=== PATIENT | male | born 1950 | race Caucasian/White ===

== ENCOUNTER 2018-07-01 09:46 | Day surgery (SDC) | payer MEDICARE ==
[~2018-07-01 09:46] MED LIST: ceFAZolin IN SWFI 2 GM/20 ML SYRINGE IVP ONE
[2018-07-01] MEDS ORDERED: ONDANSETRON 4 MG/2 ML VIAL ONE (10:16)
[2018-07-01] MEDS ORDERED: MIDAZOLAM 2 MG/2 ML VIAL ONE ×2 (10:25→10:53)
[2018-07-01 10:26] LABS: Glucose,Whole Blood 198 mg/dL (75-99)
[2018-07-01] MEDS ORDERED: LACTATED RINGERS 1,000 ML IV ONE (10:31)
[2018-07-01] MEDS ORDERED: MIDAZOLAM 2 MG/2 ML VIAL IVP ONE (10:35)
[2018-07-01] MEDS ORDERED: LIDOCAINE 1% INJ 10MG/ML (20 ML MDV) ONE ×2 (10:35→10:53)
[2018-07-01] MEDS ORDERED: PROPOFOL 10 MG/ML 20 ML VIAL IV ONE (10:53)
[2018-07-01] MEDS ORDERED: ROPIVACAINE 5 MG/ML 30 ML VIAL ONE (10:53)
[2018-07-01] MEDS ORDERED: LIDOCAINE 2%-EPI 1:100,000 20 ML VIAL ONE (10:53)
[2018-07-01] MEDS ORDERED: ceFAZolin 1,000 MG in SODIUM CHLORIDE 0.9% 1,000 ML IRRIGATION ONE (11:17)
--- NOTE | 2018-07-01 11:28 | P.OP ---
Date of Procedure: 07/01/18 Preoperative Diagnosis: Foreign body right hand Postoperative Diagnosis: Foreign body right hand Procedure(s) Performed: Removal foreign body right hand Anesthesia: regional Surgeon: Terrell Sampson Medical Science Liaison #1: Mena Cleveland Estimated Blood Loss (ml): 1 Pathology: none sent Condition: stable Disposition: PACU Indications for Procedure: This is a 68-year-old gentleman that accidentally shot a nail from a nail gun into his right hand over the weekend. [place], but decided to come back to [facility] for treatment. I evaluated the patient and the office and x-rays demonstrated a nail within the wrist of the right hand. After discussing the surgical and nonsurgical treatment options with him at length, I recommended removal of the foreign body. Informed consent was obtained. Operative Findings: The operative findings are consistent with a foreign body (nail), and the right wrist. Description of Procedure: The patient was seen and evaluated in the preoperative area, the operative site was marked with a skin marker. A regional block was then performed by the anesthesia department. Patient was then brought to the operating room and given a sedate him anesthetic by anesthesia. Tourniquet was placed on the right upper arm the right upper extremities prepped and draped in usual sterile fashion. Pierz timeout was then performed, which confirmed the patient's name, surgical site, ALLERGIES, and consent. The right upper extremity was then exsanguinated and the tourniquet inflated to 250 mmHg using fluoroscopy, the head of the nail was localized in both AP and lateral planes. An incision was then made on the volar aspect of the right wrist, similar to a carpal tunnel incision. The tissues were carefully dissected down and the head of the nail was encountered without difficulty. A hemostat was then used to lightly pry out the nail without incident. Fluoroscopy was used to confirm removal of the foreign body. The area was then irrigated and closed with 4-0 nylon. A sterile dressing was then applied. The patient was then transported to recovery room in stable condition. The inventory control assistant LISA Olvera was required due the complexity of the surgery and the need for skilled rn surgical.
[2018-07-01 11:38] VITALS: TEMP 96.8
--- NOTE | 2018-07-01 11:41 | P.ONQ ---
Anesthesiology Proc Note - PNB - Peripheral Nerve Block Performed Right Axillary Single Time Out Performed: Yes (1012) Procedure Start Time: 10:12 Procedure Stop Time: 10:20 Indication: Acute Post-Operative Pain, Dx/Pain Location (Right Hand pain), Requested by physician Sedation Type: Sedate with meaningful contact maintained Preparation: Sterile Prep Position: Supine Catheter: None Needle Types: On-Q Needle Size: 50mm (2") Needle Gauge: 21 Technique: Ultrasound Injectate: Other (see comment) (15ml 0.5% Ropivacaine + 15ml 2% Lidocaine with 1 :200,000 epi) Blood Aspirated: No Pain Paresthesia on Injection Noted: No Resistance on Injection: Normal Events: Uneventful and Well Tolerated
[2018-07-01 12:20] VITALS: RESP 18
[2018-07-01 12:43] VITALS: BP 125/78; PULSE 68
--- NOTE | 2018-07-01 12:55 | FL ---
Fluoroscopy HISTORY: Foreign body removal 2 seconds fluoroscopy time supplied to the referring clinician. 3 intraoperative C-arm images docume nt the procedure. See dictated report from orthopedic surgery.
--- NOTE | 2018-07-01 13:07 | XR ---
Limited right hand HISTORY: Foreign body removal 3 intraoperative C-arm images document the procedure.
== END 2018-07-01 12:58 | disposition home or self-care (01) ==
LOC: OR 09:46
PROVIDERS: ATTEND Orthopaedic Surgery
DX: S60.551A Superficial foreign body of right hand, initial encounter (principal); W45.0XXA Nail entering through skin, initial encounter; W29.8XXA Contact with other powered hand tools and household machinery, initial encounter; E78.5 Hyperlipidemia, unspecified; E11.22 Type 2 diabetes mellitus with diabetic chronic kidney disease; I12.9 Hypertensive chronic kidney disease with stage 1 through stage 4 chronic kidney disease, or unspecified chronic kidney disease; N18.2 Chronic kidney disease, stage 2 (mild); Z79.84 Long term (current) use of oral hypoglycemic drugs; Z87.891 Personal history of nicotine dependence; H40.9 Unspecified glaucoma; F32.9 Major depressive disorder, single episode, unspecified; G47.33 Obstructive sleep apnea (adult) (pediatric); Z79.82 Long term (current) use of aspirin; Z79.899 Other long term (current) drug therapy; Z88.6 Allergy status to analgesic agent; Z88.8 Allergy status to other drugs, medicaments and biological substances
CPT/HCPCS: 73120; 10120; J2250; J0690 ×2; J2001; J2795; J2704

== ENCOUNTER → 2018-12-04 | Outpatient (CLI) | payer MEDICARE ==
--- NOTE | 2018-12-04 12:22 | MR ---
EXAMINATION TYPE: MR pituitary wo/w con DATE OF EXAM: 12/04/2018 COMPARISON: None HISTORY: Abnormal finding of blood chemistry TECHNIQUE: Multiplanar, multisequence images of the sella turcica is performed without and with IV contrast, uti lizing 12.5 mL intravenous Gadavist . FINDINGS: Pituitary stalk is slightly deviated towards the left could be normal variant. The pituitar y shows hypointensity to the left of midline following contrast administration, 6 mm focus of decreas ed contrast enhancement thought to be asymmetric. There is no pituitary enlargement. There are normal vascular flow voids. No evident hydrocephalus. Corpus callosum is unremarkable. Cervical medullary junction is normal. IMPRESSION: Findings consistent with pituitary microadenoma.
== END | disposition home or self-care (01) ==
LOC: RADMRIMAIN 08:33
PROVIDERS: ATTEND Internal Medicine Endocrinology, Diabetes & Metabolism
DX: R79.9 Abnormal finding of blood chemistry, unspecified (principal)
CPT/HCPCS: 82565; 70553; 36415; A9585

== ENCOUNTER → 2019-04-23 | Outpatient (CLI) | payer MEDICARE ==
[2019-04-23 09:57] LABS: HCT 46.7 % (39.0-53.0); MCHC 32.1 g/dL (31.0-37.0); MCV 90.3 fL (80.0-100.0); Mean Platelet Volume 7.3; Platelet Count 246 k/uL (150-450); RBC 5.17 m/uL (4.30-5.90); RDW 13.1 % (11.5-15.5); WBC 6.2 k/uL (3.8-10.6)
[2019-04-23 16:28] LABS: Albumin 4.3 g/dL (3.80-4.90); Albumin/Globulin Ratio 2.39 (1.60-3.17); Anion Gap 7.6 mmol/L (4.00-12.00); Calcium 9.5 mg/dL (8.7-10.3); Carbon Dioxide 26.4 mmol/L (21.6-31.8); Globulin 1.8 g/dL (1.6-3.3); Potassium 5.6 mmol/L (3.5-5.5); Total Bilirubin 0.6 mg/dL (0.3-1.2); Total Protein 6.1 g/dL (6.2-8.2)
== END | disposition home or self-care (01) ==
LOC: LABWHC1 09:23
PROVIDERS: ATTEND Internal Medicine Interventional Cardiology
DX: R94.39 Abnormal result of other cardiovascular function study (principal)
CPT/HCPCS: 36415; 80053; 85027

== ENCOUNTER → 2019-04-27 | Day surgery (SDC) | payer MEDICARE ==
[2019-04-23 14:04] VITALS: BMI 33.3
[~2019-04-27] MED LIST changes: +ACETAMINOPHEN TAB 500 MG TAB PO PRN; +ALPRAZolam 0.25 MG TAB PO PRN; +ALPRAZolam 0.5 MG TAB PO PRN; +ASPIRIN 325 MG TAB PO STA; +ASPIRIN 81 MG PO SCH; +ATORVASTATIN 80 MG TAB PO SCH; +ATORVASTATIN 80 MG TAB PO STA; +GLIMEPIRIDE 4 MG TAB PO SCH; +HEPARIN SODIUM 1,000 UN/ML (10ML VL) IV ONE; +HYDROcodone/APAP 10-325MG 1 EACH TAB PO PRN; +IOPAMIDOL-370 125ML BTL INJ ONE; +LIDOCAINE 1% INJ 10MG/ML (20 ML MDV) SQ ONE; +LISINOPRIL 20 MG TAB PO SCH; +METOPROLOL TARTRATE 50 MG TAB PO SCH; +MIDAZOLAM (PF) 2 MG/2 ML VIAL IV ONE; +NITROGLYCERIN SL TABS 0.4 MG TAB SUBLINGUAL PRN; +NON-FORMULARY DRUG (Glucosam/Chon-Msm1/C/Mang/Bosw [Glucosamine-Chondroitin Tablet] 1 EACH PO SCH; +NON-FORMULARY DRUG (Magnesium Oxide 250 MG) PO SCH; +NON-FORMULARY DRUG (Multivitamin [Men's Multi-Vitamin] 1 EACH) PO SCH; +NON-FORMULARY DRUG (Ubidecarenone [Co Q-10] 100 MG) PO SCH; +RX INFO: IV CONTRAST WAS GIVEN 1 EACH MISC MISCELLANE PRN; +SODIUM CHLORIDE 0.9% 1,000 ML IV SCH; +SODIUM CHLORIDE 0.9% 1,000 ML in EMPTY BAG 1 BAG IV ONE; +TAMSULOSIN 0.4 MG CAP.ER.24H PO SCH; +VENLAFAXINE HCL 75 MG PO SCH; +VERAPAMIL SYRINGE (5 MG/10 ML) INTRAARTER ONE; -ceFAZolin IN SWFI 2 GM/20 ML SYRINGE IVP ONE; +fentaNYL (PF) 50 MCG/ML 2 ML AMP IV ONE
[2019-04-27 06:49] LABS: Glucose,Whole Blood 188 mg/dL (75-99)
[2019-04-27 07:07] VITALS: RESP 18; TEMP 98
[2019-04-27 08:20] LABS: Glucose,Whole Blood 180 mg/dL (75-99)
--- NOTE | 2019-04-27 08:31 | CC ---
CARDIAC CATHETERIZATION REPORT Mr. Canela is a 69-year-old male with a known history of hypertension, hyperlipidemia, diabetes mellitus, who recently has been complaining of exertional chest discomfort and progressive dyspnea on exertion. He underwent a myocardial perfusion imaging that was consistent with stress-induced ischemia involving the inferior wall. In view of that, recommendation was made regarding cardiac catheterization. The procedure as well as the risks and complications were discussed with the patient who is in full understanding and agreement. PROCEDURE: Patient was brought to the qc lab technician in a fasting semi-sedated state after receiving fentanyl and Benadryl and achieving moderate conscious sedated state. Using Xylocaine anesthesia in the Seldinger technique, a 6-[place] sheath was introduced in the right radial artery. Selective right and left coronary angiography was performed using 5- [place] 3.5 bend right and left Flor catheter. Multiple views of the coronary artery including hemiaxial views obtained. Following that, 5-[place] tight pigtail catheter was introduced in the left ventricle and a 30-degree FINNEGAN view of the left ventricle was obtained. Following that, catheter and sheaths were removed. Hemostasis was obtained with deployment of TR band. There was no immediate complication. Patient was returned to his room in stable condition. Of note, the patient received 5000 units of intravenous heparin as well as intra-arterial verapamil. FINDINGS: FLUOROSCOPY: There was mild calcification involving all the coronary arteries. LEFT MAIN: This was a large-sized vessel bifurcating left circumflex and left anterior descending artery. Left main coronary artery has no evidence of high-grade stenosis. LEFT ANTERIOR DESCENDING ARTERY: This was a large-sized vessel reach to the apex with a wrap around apex segment giving rise to small diagonal branch. The left anterior descending artery proximally has a 20% plaque. The rest of the vessel has no high- grade stenosis. LEFT CIRCUMFLEX: This was a nondominant vessel giving rise to 3 obtuse marginal branches, the first one is the largest and very proximal. The left circumflex and its branches have no evidence of high-grade stenosis. RIGHT CORONARY ARTERY: This was a large dominant vessel bifurcating distally PDA and posterolateral segment and branches. The right coronary artery has mild plaque in the mid segment of 10% to 20% without any evidence of high-grade stenosis. LEFT VENTRICULOGRAM: Left ventriculogram was performed in 30-degree FINNEGAN view and revealed normal left ventricular size and systolic function. Ejection fraction 55%. There was no evidence of significant mitral regurgitation. HEMODYNAMICS: There was no gradient across the aortic valve. The left ventricular end- diastolic pressure was 16 to 20 mmHg. CONCLUSION: 1. Mildly calcified coronary artery with mild coronary disease involving the LAD and the right coronary artery. 2. Normal left ventricular size and systolic function. RECOMMENDATION: In view of finding anatomy, I recommend to continue medical therapy with aggressive coronary risk modifications that have been initiated. Those findings and recommendation were discussed with the patient and his family and they are in full understanding and agreement. Duration of procedure is 20 minutes. MMODL / IJN: [id number] /
[2019-04-27 11:43] LABS: Glucose,Whole Blood 204 mg/dL (75-99)
[2019-04-27 13:42] VITALS: PULSE 52
[2019-04-27 13:43] VITALS: BP 132/80
== END | disposition home or self-care (01) ==
LOC: CATHCVL 06:08
PROVIDERS: ATTEND Internal Medicine Interventional Cardiology
DX: I25.10 Atherosclerotic heart disease of native coronary artery without angina pectoris (principal); I10 Essential (primary) hypertension; E78.2 Mixed hyperlipidemia; E11.9 Type 2 diabetes mellitus without complications; Z79.84 Long term (current) use of oral hypoglycemic drugs; Z79.82 Long term (current) use of aspirin; Z79.899 Other long term (current) drug therapy; I73.9 Peripheral vascular disease, unspecified
CPT/HCPCS: 93458; C1894; C1769; J2001; J3010; J1644; Q9967; J2250

== ENCOUNTER → 2019-12-31 | Outpatient (CLI) | payer MEDICARE ==
--- NOTE | 2019-12-31 09:58 | MR ---
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 FINDINGS: Pituitary stalk is slightly deviated towards the left could be normal variant. The pituitar y shows hypointensity to the left of midline following contrast administration, 3 mm focus of decreas ed contrast enhancement thought to be asymmetric. There is no pituitary enlargement. There are normal vascular flow voids. No evident hydrocephalus. IMPRESSION: 1. Within the posterior left aspect of the pituitary gland there remains a very vague area of reduced enhancement measuring 3 mm which is nonspecific. It is reduced in size from the prior exam. Tiny beth roadenoma not excluded.
== END | disposition home or self-care (01) ==
LOC: RADMRIMAIN 08:49
PROVIDERS: ATTEND Internal Medicine Endocrinology, Diabetes & Metabolism
DX: D35.2 Benign neoplasm of pituitary gland (principal)
CPT/HCPCS: 70553; A9585

== ENCOUNTER 2020-11-02 10:49 | Inpatient (IN) | payer MEDICARE ==
--- NOTE | 2020-11-02 11:19 | XR ---
EXAMINATION TYPE: XR chest 1V DATE OF EXAM: 11/02/2020 COMPARISON: 07/13/2015 HISTORY: Chest pain TECHNIQUE: Single frontal view of the chest is obtained. FINDINGS: There is no focal air space opacity, pleural effusion, or pneumothorax seen. The cardiac silhouette size is within normal limits. Subsegmental linear changes most typical of atelectasis. H eart is enlarged and there is postoperative change involving the shoulders. No overt failure. IMPRESSION: 1. Cardiomegaly. 2. Subsegmental left retrocardiac changes most likely in the basis of atelectasis correlate clinicall y for confirmation.
[2020-11-02 11:30] LABS: Basophils # (A) 0.1 k/uL (0-0.2); Basophils % (A) 1 %; Eosinophils # (A) 0.5 k/uL (0-0.7); Eosinophils % (A) 5 %; HCT 45.7 % (39.0-53.0); HGB 15.8 gm/dL (13.0-17.5); Lymphocytes # (A) 1.4 k/uL (1.0-4.8); Lymphocytes % (A) 14 %; MCH 30.6 pg (25.0-35.0); MCHC 34.7 g/dL (31.0-37.0); MCV 88.4 fL (80.0-100.0); Mean Platelet Volume 7.1; Monocytes # (A) 0.7 k/uL (0-1.0); Monocytes % (A) 8 %; Neutrophils # (A) 6.8 k/uL (1.3-7.7); Neutrophils % (A) 71 %; Platelet Count 205 k/uL (150-450); RBC 5.17 m/uL (4.30-5.90); RDW 12.6 % (11.5-15.5); WBC 9.6 k/uL (3.8-10.6)
[2020-11-02] MEDS ORDERED: HEPARIN SODIUM,PORCINE 5,000 UNIT/ML 1 ML VIAL IV PRN (11:30)
[2020-11-02 11:41] LABS: Albumin 4.2 g/dL (3.5-5.0); Total Protein 6.8 g/dL (6.3-8.2)
[2020-11-02 11:43] LABS: Calcium 9.2 mg/dL (8.4-10.2); Magnesium 1.4 mg/dL (1.6-2.3); Total Bilirubin 0.6 mg/dL (0.2-1.3)
[2020-11-02 11:52] LABS: Partial Thromboplastin Time 51.2 sec (22.0-30.0); Prothrombin Time 10.8 sec (9.0-12.0)
[2020-11-02] MEDS: HEPARIN SOD,PORK IN 0.45% NACL 25,000 UNIT in 0.45% NACL 1 250ML.BAG IV SCH (12:08)
[2020-11-02] MEDS ORDERED: Magnesium Replacement Protocol 1 EACH MISC MISCELLANE PRN (12:25)
[2020-11-02] MEDS ORDERED: SODIUM CHLORIDE 0.9% 1,000 ML in EMPTY BAG 1 BAG IV ONE (12:27)
[2020-11-02] MEDS ORDERED: ALPRAZolam 0.25 MG TAB PO PRN (12:27)
[2020-11-02] MEDS ORDERED: NITROGLYCERIN SL TABS 0.4 MG TAB SUBLINGUAL PRN ×2 (12:27→13:23)
--- NOTE | 2020-11-02 13:15 | ED ---
Chest Pain HPI - General Chief Complaint: Chest Pain Stated Complaint: STEMI Time Seen by Provider: 11/02/20 10:50 Source: patient, RN notes reviewed Mode of arrival: EMS Limitations: no limitations - History of Present Illness Initial Comments: This is a 70-year-old male by EMS from [facility] complaints of the onset chest pain today and evidence of a ST elevation myocardial infarction. Patient apparently had chest pain that did improve after he was given nitroglycerin as well as aspirin was given heparin IV. Said the pain went away after nitroglycerin. EKG was reported to show evidence of ST elevation in the inferior and lateral leads. He was transferred here priority 1. The patient upon arrival complaining of no chest pain no difference breath fevers chills nausea vomiting sweats. He does have a prior history of a catheterization showing nonobstructive lesion he's not sure where MD Complaint: chest pain - Related Data Home Medications Medication Instructions Recorded Confirmed Atorvastatin [Lipitor] 80 mg PO HS 07/01/18 11/02/20 Glimepiride [Amaryl] 4 mg PO BID 07/01/18 11/02/20 Magnesium Oxide [Mag-Ox] 500 mg PO BID 07/01/18 11/02/20 Ubidecarenone [Co Q-10] 100 mg PO DAILY 07/01/18 11/02/20 metFORMIN HCL 1,000 mg PO BID 07/01/18 11/02/20 Acetaminophen [Tylenol] 1,000 mg PO Q4-6H PRN 04/23/19 11/02/20 Glucosam/Rao-Msm1/C/Moody/Bosw 1 tab PO DAILY 04/23/19 11/02/20 [Glucosamine-Chondroitin Tablet] HYDROcodone/APAP 10-325MG [[place] 1 tab PO TID PRN 04/23/19 11/02/20 10-325] Tamsulosin [Flomax] 0.4 mg PO DAILY 04/23/19 11/02/20 lisinopriL [Zestril] 40 mg PO DAILY 04/23/19 11/02/20 Ascorbic Acid [Vitamin C] 500 mg PO DAILY 11/02/20 11/02/20 Aspirin EC [Ecotrin Low Dose] 81 mg PO DAILY 11/02/20 11/02/20 Budesonide/Formoterol Fumarate 2 puff INHALATION RT-BID 11/02/20 11/02/20 [Symbicort 80-4.5 Mcg Inhaler] Insulin Glargine,Hum.rec.anlog 28 unit SQ BID 11/02/20 11/02/20 [Lantus Solostar] Ipratropium/Albuterol Sulfate 1 puff INHALATION RT-QID PRN 11/02/20 11/02/20 [Combivent Respimat Inhaler] Metoprolol Tartrate [Lopressor] 50 mg PO BID 11/02/20 11/02/20 Multivit-Min/FA/Lycopen/Lutein 1 tab PO DAILY 11/02/20 11/02/20 [Centrum Silver Tablet] Venlafaxine HCl [Effexor XR] 75 mg PO BID 11/02/20 11/02/20 Zinc 50 mg PO DAILY 11/02/20 11/02/20 Allergies Allergy/AdvReac Type Severity Reaction Status Date / Time dulaglutide [From Trulicity] Allergy Diarrhea,NAUSEA, Verified 11/02/20 12:07 ABD PAIN ,VERY TIRED esomeprazole [From Nexium] Allergy Unknown Verified 11/02/20 12:07 NSAIDS (Non-Steroidal AdvReac Unknown Verified 11/02/20 12:07 Anti-Inflamma Review of Systems ROS Statement: Those systems with pertinent positive or pertinent negative responses have been documented in the HPI. ROS Other: All systems not noted in ROS Statement are negative. EKG Findings - EKG Results: EKG: interpreted by ERMIrais, sinus rhythm (EKG shows sinus rhythm rate of 80. Interval 158 QRS duration 80 QT/QTC 340/392 evidence of early repolarization there is elevation of the ST segments consistent with early re-pole leads 1 and 2 aVL as well as V2 through V6. 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, NEUROPATHY , STAGE 2 RENAL FAILURE, SHORTNESS OF BREATH, History of Any Multi-Drug Resistant Organisms: None Reported Past Surgical History: Heart Catheterization, Orthopedic Surgery Additional Past Surgical History / Comment(s): STAGE 2 RENAL FAILURE Past Anesthesia/Blood Transfusion Reactions: No Reported Reaction Additional Past Anesthesia/Blood Transfusion Reaction / Comment(s): PREVIOUSLY STATES WOKE UP A CHILD " Past Psychological History: No Psychological Hx Reported Smoking Status: Former smoker Past Alcohol Use History: Rare Past Drug Use History: None Reported - Past Family History Mother Family Medical History: Cancer Additional Family Medical History / Comment(s): COLON CANCER Father Family Medical History: Cancer Additional Family Medical History / Comment(s): COLON CANCER General Exam - General Exam Comments Initial Comments: This is a well-developed well-nourished awake alert oriented times 3 male Limitations: no limitations General appearance: alert, in no apparent distress Head exam: Present: atraumatic, normocephalic, normal inspection Eye exam: Present: normal appearance, PERRL, EOMI. Absent: scleral icterus, conjunctival injection, periorbital swelling ENT exam: Present: normal exam, mucous membranes moist Neck exam: Present: normal inspection. Absent: tenderness, meningismus, lymphadenopathy Respiratory exam: Present: normal lung sounds bilaterally. Absent: respiratory distress, wheezes, rales, rhonchi, stridor Cardiovascular Exam: Present: regular rate, normal rhythm, normal heart sounds. Absent: systolic murmur, diastolic murmur, rubs, gallop, clicks GI/Abdominal exam: Present: soft, normal bowel sounds. Absent: distended, tenderness, guarding, rebound, rigid Extremities exam: Present: normal inspection, full ROM, normal capillary refill. Absent: tenderness, pedal edema, joint swelling, calf tenderness Back exam: Present: normal inspection Neurological exam: Present: alert, oriented X3, CN II-XII intact Psychiatric exam: Present: normal affect, normal mood Skin exam: Present: warm, dry, intact, normal color. Absent: rash Course Vital Signs 11/02/20 11/02/20 11/02/20 10:50 11:00 11:06 Temperature 98.4 F Pulse Rate 75 81 89 Respiratory 18 18 18 Rate Blood Pressure 143/101 163/99 O2 Sat by Pulse 99 100 Oximetry 11/02/20 11:10 Temperature Pulse Rate 84 Respiratory 18 Rate Blood Pressure 173/106 O2 Sat by Pulse 97 Oximetry - Reevaluation(s) Reevaluation #1: 11/02/20 13:18 I did reevaluate patient on several occasions he had no further chest pain. Dr. JOSE Lyman did come the emergency department see the patient. 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 I did also discuss the case with Dr. Espinoza Chest Pain MDM - MDM Imaging reviewed showing no acute findings. I did discuss the findings again as above the patient will be admitted for inpatient treatment of unstable angina. Patient does also have some hypomagnesemia noted. Critical Care Time Critical Care Time: Yes Total Critical Care Time: 31 Critical Care Time: 31 minutes of critical care time which includes initial presentation with history physical labs x-rays discussed with the sending physician discussion with the admitting physician and Consult at. Multiple reevaluation the patient. Admission orders documentation the above Disposition Clinical Impression: Unstable angina pectoris, Chest pain, Hypomagnesemia Disposition: ADMITTED IP TO THIS HOSP Condition: Fair Referrals: Maximiliano Kaur MD [Primary Care Provider] - 1-2 days
[2020-11-02] MEDS: MAGNESIUM SULFATE-D5W PMX 1 GM in DEXTROSE/WATER 1 100ML.BAG IVPB SCH ×3 (13:37→16:04)
--- NOTE | 2020-11-02 14:26 | PN ---
PROGRESS NOTE Mr. Canela is doing well. I went back and saw him in the emergency room. He is resting comfortably, has absolutely no chest pain. EKG and chest x-ray do not reveal any significant abnormalities. Given the fact he presented with chest pain was thought that he may have an ST-elevation ME and because of his risk factors, I am recommending coronary angiography to be performed tomorrow. I discussed this with the patient and will hydrate him at 75 mL/hour normal saline, resume his medications, perform serial troponins. I explained to him the rationale, risks, benefits, options, and coronary angiography will be performed tomorrow by Dr. Johnson. If he has any chest pain, we will re-evaluate him and consider intervention today. MMODL / IJN: [id number] /
[2020-11-02 14:38] LABS: Calcium 9.3 mg/dL (8.4-10.2)
--- NOTE | 2020-11-02 14:39 | P.HPIM ---
History of Present Illness This is a pleasant 70 years old male with past medical history of asthma, diabetes mellitus, hypertension Presents because of chest pain of one-day duration associated with difficulty breathing, chest pain is centrally radiating to the jaw and between shoulder blades, oriented by the patient as 8/10, relieved by nitro when he went to [facility]. However he denies coughing or abdominal pain. Other than that patient has been having heartburn for the last 2-3 weeks but no nausea vomiting or diarrhea. No urinary complaints. No fever. Patient complaining of from pain in his both feet Patient denies smoking, alcohol or illicit drugs. Vitals looks stable. Patient has unremarkable CBC, BMP and liver enzymes. Ma gnesium slightly low at 1.4, glucose is high at 2226. EKG showing normal sinus rhythm at [address] T changes, there is only slightly elevated ST segment in V1 to V2 looks like cordlike earlier presentation. Chest x-ray showing cardiomegaly and subsequent the left retrocardiac changes most likely in the bases of atelectasis Review of Systems CONSTITUTIONAL: No fever, no malaise, no fatigue. HEENT: No recent visual problems or hearing problems. Denied any sore throat. CARDIOVASCULAR: No orthopnea, PND, no palpitations, no syncope. PULMONARY: No shortness of breath, no cough, no hemoptysis. GASTROINTESTINAL: No diarrhea, no nausea, no vomiting, no abdominal pain. Normoactive bowel sounds. NEUROLOGICAL: No headaches, no weakness, no numbness. HEMATOLOGICAL: Denies any bleeding or petechiae. GENITOURINARY: Denies any burning micturition, frequency, or urgency. MUSCULOSKELETAL/RHEUMATOLOGICAL: Denies any joint pain, swelling, or any muscle pain. ENDOCRINE: Denies any polyuria or polydipsia. 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, NEUROPATHY , STAGE 2 RENAL FAILURE, SHORTNESS OF BREATH, History of Any Multi-Drug Resistant Organisms: None Reported Past Surgical History: Heart Catheterization, Orthopedic Surgery Additional Past Surgical History / Comment(s): STAGE 2 RENAL FAILURE Past Anesthesia/Blood Transfusion Reactions: No Reported Reaction Additional Past Anesthesia/Blood Transfusion Reaction / Comment(s): PREVIOUSLY STATES WOKE UP A CHILD " Past Psychological History: No Psychological Hx Reported Smoking Status: Former smoker Past Alcohol Use History: Rare Past Drug Use History: None Reported - Past Family History Mother Family Medical History: Cancer Additional Family Medical History / Comment(s): COLON CANCER Father Family Medical History: Cancer Additional Family Medical History / Comment(s): COLON CANCER Medications and Allergies Home Medications Medication Instructions Recorded Confirmed Type Atorvastatin [Lipitor] 80 mg PO HS 07/01/18 11/02/20 History Glimepiride [Amaryl] 4 mg PO BID 07/01/18 11/02/20 History Magnesium Oxide [Mag-Ox] 500 mg PO BID 07/01/18 11/02/20 History Ubidecarenone [Co Q-10] 100 mg PO DAILY 07/01/18 11/02/20 History metFORMIN HCL 1,000 mg PO BID 07/01/18 11/02/20 History Acetaminophen [Tylenol] 1,000 mg PO Q4-6H PRN 04/23/19 11/02/20 History Glucosam/Rao-Msm1/C/Moody/Bosw 1 tab PO DAILY 04/23/19 11/02/20 History [Glucosamine-Chondroitin Tablet] HYDROcodone/APAP 10-325MG [[place] 1 tab PO TID PRN 04/23/19 11/02/20 History 10-325] Tamsulosin [Flomax] 0.4 mg PO DAILY 04/23/19 11/02/20 History lisinopriL [Zestril] 40 mg PO DAILY 04/23/19 11/02/20 History Ascorbic Acid [Vitamin C] 500 mg PO DAILY 11/02/20 11/02/20 History Aspirin EC [Ecotrin Low Dose] 81 mg PO DAILY 11/02/20 11/02/20 History Budesonide/Formoterol Fumarate 2 puff INHALATION RT-BID 11/02/20 11/02/20 History [Symbicort 80-4.5 Mcg Inhaler] Insulin Glargine,Hum.rec.anlog 28 unit SQ BID 11/02/20 11/02/20 History [Lantus Solostar] Ipratropium/Albuterol Sulfate 1 puff INHALATION RT-QID PRN 11/02/20 11/02/20 History [Combivent Respimat Inhaler] Metoprolol Tartrate [Lopressor] 50 mg PO BID 11/02/20 11/02/20 History Multivit-Min/FA/Lycopen/Lutein 1 tab PO DAILY 11/02/20 11/02/20 History [Centrum Silver Tablet] Venlafaxine HCl [Effexor XR] 75 mg PO BID 11/02/20 11/02/20 History Zinc 50 mg PO DAILY 11/02/20 11/02/20 History Allergies Allergy/AdvReac Type Severity Reaction Status Date / Time dulaglutide [From Trulicity] Allergy Diarrhea,NAUSEA, Verified 11/02/20 12:07 ABD PAIN ,VERY TIRED esomeprazole [From Nexium] Allergy Unknown Verified 11/02/20 12:07 NSAIDS (Non-Steroidal AdvReac Unknown Verified 11/02/20 12:07 Anti-Inflamma Physical Exam Vitals: Vital Signs Temp Pulse Resp BP Pulse Ox 11/02/20 13:30 83 14 126/75 96 11/02/20 12:30 78 14 147/91 97 11/02/20 12:00 80 18 143/90 99 11/02/20 11:30 82 16 166/99 98 11/02/20 11:10 84 18 173/106 97 11/02/20 11:06 89 18 163/99 100 11/02/20 11:00 79 21 143/101 99 11/02/20 10:50 98.4 F 75 18 Intake and Output 11/01/20 11/02/20 11/02/20 22:59 06:59 14:59 Other: Weight 122.47 kg GENERAL: The patient is alert and oriented x3, not in any acute distress. Well developed, well nourished. HEENT: Pupils are round and equally reacting to light. EOMI. No scleral icterus. No conjunctival pallor. Normocephalic, atraumatic. No pharyngeal erythema. No thyromegaly. CARDIOVASCULAR: S1 and S2 present. No murmurs, rubs, or gallops. PULMONARY: Chest is clear to auscultation, no wheezing or crackles. ABDOMEN: Soft, nontender, nondistended, normoactive bowel sounds. No palpable organomegaly. MUSCULOSKELETAL: No joint swelling or deformity. EXTREMITIES: No cyanosis, clubbing, or pedal edema. NEUROLOGICAL: Gross neurological examination did not reveal any focal deficits. SKIN: No rashes. No petechiae Results CBC & Chem 7: 11/02/20 10:55 11/02/20 10:55 Labs: Abnormal Lab Results - Last 24 Hours (Table) 11/02/20 11/02/20 11/02/20 Range/Units 10:55 10:55 13:44 APTT 51.2 H (22.0-30.0) sec D-Dimer 0.81 H (<0.60) mg/L FEU Sodium 134 L (137-145) mmol/L BUN 23 H (9-20) mg/dL Glucose 226 H (74-99) mg/dL Magnesium 1.4 L (1.6-2.3) mg/dL Assessment and Plan Assessment: Chest pain, rule out cardiac or pulmonary causes Dehydration Diabetes mellitus Hypertension History of asthma Plan: This is a pleasant 70 years old male who presents with chest pain, looks more pruritic like pain. Cardiology started the patient on heparin drip, we will check d-dimer. Also check echocardiogram. Continue with IV fluids Labs and medication were reviewed.. Continue same treatment. Continue with symptomatic treatment. Resume home medication. Monitor lytes and vitals. DVT and GI prophylaxis. Further recommendations depends on the clinical course of the patient DVT prophylaxis: heparin GI Prophylaxis: Ppi Prognosis is guarded
[2020-11-02 14:50] LABS: Potassium 4.9 mmol/L (3.5-5.1)
--- NOTE | 2020-11-02 15:14 | CONS ---
CONSULTATION This is a 70-year-old gentleman with type 2 diabetes, hypertension, hyperlipidemia, who sees Dr. Zenon Kaur in the primary care setting and Dr. Zainab Johnson. He was transferred from [facility] with a concern that we may be dealing with an ST-elevation IL. He apparently complained of chest discomfort and on looking at the EKG both from [facility] and here, there is no clear-cut evidence of ST elevation. There is a J-point prominence with early repolarization type picture with a possibly 0.[address]-segment prominence in lead aVL. I looked in the EKGs, evaluated the patient in the emergency room and I felt that we were not dealing with any ST-elevation IL. His pain quality is very atypical respirophasic and he is completely pain-free, has totally resolved and he is comfortable resting. He received intravenous heparin and also aspirin. He is asymptomatic at the time of my evaluation. He had a cardiac catheterization about a year or so ago, which was unremarkable and has no significant obstructive disease. PAST MEDICAL HISTORY: 1. This is remarkable for type 2 diabetes insulin-requiring. 2. He has hypertension. 3. Obesity. 4. Hyperlipidemia. 5. Past history of smoking. 6. Patient had a coronary angiography in April of 2019, which revealed mildly calcified coronary anatomy with mild disease involving the LAD and RCA. Normal LV size and systolic function were noted by LV-gram. PHYSICAL EXAMINATION: On examination, blood pressure is 160/70, pulse rate is about 80 per minute, regular. HEENT: Unremarkable. Fundus was not examined by me. NECK: Supple. There is no JVD. I do not hear a carotid bruit. HEART: Exam reveals S1, S2. Heart sounds are heard distantly. LUNGS: Reveal bilateral decent air entry. ABDOMEN: Soft, nontender. Lower extremities reveal diminished pulses, trace edema. CENTRAL NERVOUS SYSTEM: Grossly no focal deficits. IMPRESSION: 1. Chest pain syndrome, probable angina, does not suggest ST-elevation IL, based on my evaluation and EKG. 2. Obesity. 3. Hypertension. 4. Type 2 diabetes. 5. Hyperlipidemia. 6. Unremarkable cardiac cath about a year ago. RECOMMENDATIONS: I am recommending heparinization resumption of medications optimizing BP control and we will consider coronary angiography electively tomorrow but if he has more symptoms, I will consider it today. I discussed my thoughts in detail with the patient and also spoke to the ER physician. There was no family available and I tried to call the 2 phone numbers provided and we could not reach his . Thank you very much for the consult. BERONICA / SHARI: [phone] /
[2020-11-02 15:59] LABS: Glucose,Whole Blood 339 mg/dL (75-99)
[2020-11-02] MEDS: SODIUM CHLORIDE 0.9% 1,000 ML IV SCH (16:05)
[2020-11-02] MEDS: SYMBICORT 80-4.5 MCG INHALER INHALATION SCH (19:52)
[2020-11-02 20:38] LABS: Glucose,Whole Blood 304 mg/dL (75-99)
[2020-11-02] MEDS: INSULIN ASPART (NovoLOG) 100 UNIT/ML VIAL SQ SCH (21:39)
[2020-11-02] MEDS: INSULIN DETEMIR (LEVEMIR) 100 UNIT/ML SYR SQ SCH (21:40)
[2020-11-02] MEDS: VENLAFAXINE HCL ER 75 MG CAP PO SCH (21:42)
[2020-11-02] MEDS: ATORVASTATIN 80 MG TAB PO SCH (21:42)
[2020-11-02] MEDS: GLIMEPIRIDE 4 MG TAB PO SCH (21:42)
[2020-11-02] MEDS: METOPROLOL TARTRATE 50 MG TAB PO SCH (21:42)
[2020-11-02] MEDS: ALPRAZolam 0.5 MG TAB PO PRN ×2 (21:54→21:58)
[2020-11-02] MEDS ORDERED: INSULIN DETEMIR (LEVEMIR) 100 UNIT/ML SYR SQ ONE (22:00)
[2020-11-02] MEDS ORDERED: HYDROcodone/APAP 10-325MG 1 EACH TAB PO PRN (22:00)
[2020-11-02] MEDS: TAMSULOSIN 0.4 MG CAP.ER.24H PO SCH (22:04)
--- NOTE | 2020-11-03 00:01 | US ---
EXAMINATION TYPE: US venous doppler duplex LE DATE OF EXAM: 11/02/2020 11:17 PM COMPARISON: NONE CLINICAL HISTORY: Rule out DVT. Rule out DVT. Patient has shortness of breath. Hx left knee replaceme nt. Patient on heparin. No hx of DVT. SIDE PERFORMED: Bilateral TECHNIQUE: The lower extremity deep venous system is examined utilizing real time linear array sonog jimena with graded compression, doppler sonography and color-flow sonography. VESSELS IMAGED: Common Femoral Vein Deep Femoral Vein Greater Saphenous Vein * Femoral Vein Popliteal Vein Small Saphenous Vein * Proximal Calf Veins (* superficial vessels) Right Leg: No evidence of DVT in veins imaged at this time from prox calf veins to CFV/GSV. Left Leg: No evidence of DVT in veins imaged at this time from prox calf veins to CFV/GSV. IMPRESSION: No sign of deep vein thrombosis in both legs.
[2020-11-03] MEDS: SODIUM CHLORIDE 0.9% 1,000 ML IV SCH (05:47)
[2020-11-03] MEDS ORDERED: ASPIRIN 325 MG TAB PO ONE (06:00)
[2020-11-03 06:20] LABS: Glucose,Whole Blood 139 mg/dL (75-99)
[2020-11-03] MEDS ORDERED: ASPIRIN 325 MG TAB PO STA (06:27)
[2020-11-03 07:58] LABS: Basophils % (A) 1 %; Eosinophils # (A) 0.4 k/uL (0-0.7); Eosinophils % (A) 7 %; HCT 44.1 % (39.0-53.0); HGB 14.5 gm/dL (13.0-17.5); Lymphocytes # (A) 1.2 k/uL (1.0-4.8); Lymphocytes % (A) 25 %; MCH 29.6 pg (25.0-35.0); MCHC 32.9 g/dL (31.0-37.0); Mean Platelet Volume 7.3; Monocytes # (A) 0.4 k/uL (0-1.0); Monocytes % (A) 9 %; Neutrophils # (A) 2.9 k/uL (1.3-7.7); Neutrophils % (A) 57 %; Platelet Count 181 k/uL (150-450); RDW 13.2 % (11.5-15.5)
[2020-11-03 08:09] LABS: Calcium 8.8 mg/dL (8.4-10.2); Magnesium 1.7 mg/dL (1.6-2.3); Potassium 4.2 mmol/L (3.5-5.1)
[2020-11-03] MEDS: TAMSULOSIN 0.4 MG CAP.ER.24H PO SCH (08:36)
[2020-11-03] MEDS: ZINC SULFATE 220 MG CAP PO SCH (08:36)
[2020-11-03] MEDS: METOPROLOL TARTRATE 50 MG TAB PO SCH ×2 (08:36→20:16)
[2020-11-03] MEDS: ASCORBIC ACID 500 MG TAB PO SCH (08:36)
[2020-11-03] MEDS: VENLAFAXINE HCL ER 75 MG CAP PO SCH ×2 (08:36→20:16)
[2020-11-03] MEDS: lisinopriL 20 MG TAB PO SCH (08:36)
[2020-11-03] MEDS: GLIMEPIRIDE 4 MG TAB PO SCH ×2 (08:39→23:06)
[2020-11-03] MEDS: SYMBICORT 80-4.5 MCG INHALER INHALATION SCH ×2 (08:57→19:15)
[2020-11-03] MEDS ORDERED: NON FORMULARY DRUG (Aspirin Ec 81 MG Tablet.Dr) PO SCH (09:00)
[2020-11-03] MEDS ORDERED: ASPIRIN 325 MG TAB PO SCH (09:00)
[2020-11-03] MEDS ORDERED: TAMSULOSIN 0.4 MG CAP.ER.24H PO SCH (09:00)
--- NOTE | 2020-11-03 09:47 | ECHOF ---
Referral Reason:chest pain MEASUREMENTS -------- HEIGHT: 185.4 cm WEIGHT: 122.5 kg BP: 134/75 IVSd: 1.0 cm (0.6 - 1.1) LVIDd: 2.7 cm (3.9 - 5.3) LVPWd: 1.3 cm (0.6 - 1.1) IVSs: 1.3 cm LVIDs: 1.4 cm LVPWs: 1.2 cm LAESV Index (A-L): 21.44 ml/m MV E Owen: 0.44 m/s MV DecT: 135 ms MV A Owen: 0.53 m/s MV E/A Ratio: 0.82 RAP: 5.00 mmHg RVSP: 19.78 mmHg FINDINGS -------- Sinus rhythm. This was a technically difficult study with suboptimal views. The left ventricular size is normal. There is mild concentric left ventricular hypertrophy. Overa ll left ventricular systolic function is low-normal with, an EF between 50 - 55 %. The RV was not well visualized. Normal LA size by volume 22+/-6 ml/m2. The right atrium was not well visualized. xx ml of Lumason was utilized for enhancement of images. Interatrial and interventricular septum intact. The aortic valve was not well visualized. There is no evidence of aortic regurgitation. There is no evidence of aortic stenosis. Mild mitral regurgitation is present. Mild tricuspid regurgitation present. There is no evidence of pulmonary hypertension. The right v entricular systolic pressure, as measured by Doppler, is 19.78mmHg. The pulmonic valve was not well visualized. Ao root not visualized IVC Not well visulized. There is no pericardial effusion. CONCLUSIONS -------- 1. The left ventricular size is normal. 2. There is mild concentric left ventricular hypertrophy. 3. Overall left ventricular systolic function is low-normal with, an EF between 50 - 55 %. 4. Mild mitral regurgitation is present. 5. Mild tricuspid regurgitation present. CENTRIFUGE SEPARATOR OPERATOR: Jerrica Cade RDCS
[2020-11-03] MEDS: INSULIN DETEMIR (LEVEMIR) 100 UNIT/ML SYR SQ SCH ×2 (09:52→20:16)
[2020-11-03] MEDS: INSULIN ASPART (NovoLOG) 100 UNIT/ML VIAL SQ SCH ×4 (09:52→20:16)
[2020-11-03] MEDS: HEPARIN SOD,PORK IN 0.45% NACL 25,000 UNIT in 0.45% NACL 1 250ML.BAG IV SCH (11:21)
[2020-11-03] MEDS ORDERED: fentaNYL (PF) 50 MCG/ML 2 ML AMP IV ONE (12:01)
[2020-11-03] MEDS ORDERED: IV FLUID CONTINUATION 150 ML IV ONE (12:01)
[2020-11-03] MEDS ORDERED: LIDOCAINE 1% INJ 10MG/ML (20 ML MDV) SQ ONE (12:03)
[2020-11-03] MEDS ORDERED: VERAPAMIL SYRINGE (5 MG/10 ML) INTRAARTER ONE (12:05)
[2020-11-03] MEDS ORDERED: HEPARIN SODIUM 1,000 UN/ML (10ML VL) IV ONE (12:12)
[2020-11-03] MEDS ORDERED: IOPAMIDOL-370 125ML BTL INJ ONE (12:18)
[2020-11-03] MEDS ORDERED: RX INFO: IV CONTRAST WAS GIVEN 1 EACH MISC MISCELLANE PRN (12:39)
[2020-11-03 12:44] LABS: Glucose,Whole Blood 148 mg/dL (75-99)
[2020-11-03] MEDS ORDERED: SODIUM CHLORIDE 0.9% 1,000 ML IV SCH (12:45)
--- NOTE | 2020-11-03 13:01 | P.PN ---
Subjective This is a pleasant 70 years old male with past medical history of asthma, diabetes mellitus, hypertension Presents because of chest pain of one-day duration associated with difficulty breathing, chest pain is centrally radiating to the jaw and between shoulder blades, oriented by the patient as 8/10, relieved by nitro when he went to [facility]. However he denies coughing or abdominal pain. Other than that patient has been having heartburn for the last 2-3 weeks but no nausea vomiting or diarrhea. No urinary complaints. No fever. Patient complaining of from pain in his both feet Patient denies smoking, alcohol or illicit drugs. Vitals looks stable. Patient has unremarkable CBC, BMP and liver enzymes. Magnesium slightly low at 1.4, glucose is high at 2226. EKG showing normal sinus rhythm at [address] T changes, there is only slightly elevated ST segment in V1 to V2 looks like cordlike earlier presentation. Chest x-ray showing cardiomegaly and subsequent the left retrocardiac changes most likely in the bases of atelectasis 11/03/2020 History this pain is a little bit better today, about 3/10 in severity, increased with deep breath, which make this more pleuritic like. Patient undergoing cardiac cath today D-dimer is slightly elevated, ultrasound of the lower extremities negative for DVT. CT angiogram is currently in high-risk for nephrotoxicity is especially patient is getting the contrast today with worsening creatinine up to 1.28, we will order VQ scan to assess for possible pulmonary embolism. We will consult nephrology service Patient is currently on normal saline at 75 mL/h, also he is on heparin drip. Echocardiogram: Ejection fraction 50-55% Review of Systems CONSTITUTIONAL: No fever, no malaise, no fatigue. HEENT: No recent visual problems or hearing problems. Denied any sore throat. CARDIOVASCULAR: No orthopnea, PND, no palpitations, no syncope. PULMONARY: No shortness of breath, no cough, no hemoptysis. GASTROINTESTINAL: No diarrhea, no nausea, no vomiting, no abdominal pain. Normoactive bowel sounds. NEUROLOGICAL: No headaches, no weakness, no numbness. HEMATOLOGICAL: Denies any bleeding or petechiae. Active Medications Generic Name Dose Route Start Last Admin Trade Name Freq PRN Reason Stop Dose Admin Hydrocodone Bitart/Acetaminophen 1 each 11/02/20 22:00 11/02/20 22:05 Hydrocodone/Apap 10-325mg 1 Each Tab PO 1 each DAILY PRN Administration Pain Alprazolam 0.25 mg 11/02/20 12:27 Alprazolam 0.25 Mg Tab PO Q6HR PRN Mild Anxiety Alprazolam 0.5 mg 11/02/20 12:27 Alprazolam 0.5 Mg Tab PO Q6HR PRN Moderate Anxiety Ascorbic Acid 500 mg 11/03/20 09:00 11/03/20 08:36 Ascorbic Acid 500 Mg Tab PO 500 mg DAILY TAMIKO Administration Aspirin 81 mg 11/04/20 09:00 Aspirin 81 Mg PO DAILY TAMIKO Atorvastatin Calcium 80 mg 11/02/20 21:00 11/02/20 21:42 Atorvastatin 80 Mg Tab PO Not Given HS TAMIKO Budesonide/Formoterol Fumarate 2 puff 11/02/20 20:00 11/03/20 08:57 Symbicort 80-4.5 Mcg Inhaler INHALATION 2 puff RT-BID TAMIKO Administration Glimepiride 4 mg 11/02/20 21:00 11/03/20 08:39 Glimepiride 4 Mg Tab PO Not Given BID TAMIKO Sodium Chloride 1,000 mls @ 75 mls/hr 11/02/20 14:45 11/03/20 05:47 Saline 0.9% IV Not Given .[id number] TAMIKO Sodium Chloride 1,000 mls @ 75 mls/hr 11/03/20 12:45 11/03/20 12:50 Saline 0.9% IV 11/03/20 16:04 75 mls/hr .[id number] T[facility]IKO Administration Insulin Aspart 0 unit 11/02/20 21:00 11/03/20 12:47 Insulin Aspart (Novolog) 100 Unit/Ml Vial SQ 1 unit ACHS TAMIKO Administration Protocol Insulin Detemir 28 unit 11/02/20 21:00 11/03/20 09:52 Insulin Detemir (Levemir) 100 Unit/Ml Syr SQ Not Given BID@0700,2100 TAMIKO Lisinopril 40 mg 11/03/20 09:00 11/03/20 08:36 Lisinopril 20 Mg Tab PO 40 mg DAILY TAMIKO Administration Metoprolol Tartrate 50 mg 11/02/20 21:00 11/03/20 08:36 Metoprolol Tartrate 50 Mg Tab PO 50 mg BID TAMIKO Administration Miscellaneous Information 1 each 11/02/20 12:25 Magnesium Replacement Protocol 1 Each Misc MISCELLANE DAILY PRN Per Protocol Protocol Miscellaneous Information 1 each 11/03/20 12:39 Rx Info: Iv Contrast Was Given 1 Each Misc MISCELLANE 11/05/20 12:39 DAILY PRN Per Protocol Nitroglycerin 0.4 mg 11/02/20 12:27 Nitroglycerin Sl Tabs 0.4 Mg Tab SUBLINGUAL Q5M PRN Chest Pain Tamsulosin HCl 0.4 mg 11/02/20 21:43 11/03/20 08:36 Tamsulosin 0.4 Mg Cap.Er.24h PO 0.4 mg DAILY TAMIKO Administration Venlafaxine HCl 75 mg 11/02/20 21:00 11/03/20 08:36 Venlafaxine Hcl Er 75 Mg Cap PO 75 mg BID TAMIKO Administration Zinc Sulfate 220 mg 11/03/20 09:00 11/03/20 08:36 Zinc Sulfate 220 Mg Cap PO 220 mg DAILY TAMIKO Administration Objective - Vital Signs Vital signs: Vital Signs Temp 98.0 F 11/03/20 12:42 Pulse 72 11/03/20 12:42 Resp 20 11/03/20 12:42 BP 139/85 11/03/20 12:42 Pulse Ox 93 L 11/03/20 12:42 Intake & Output 11/02/20 11/03/20 11/03/20 18:59 06:59 18:59 Intake Total 543.761 131.239 Output Total 1150 200 Balance -606.239 -68.761 Weight 122.47 kg 120.4 kg Intake: IV 50 Intake, IV Titration 543.761 81.239 Amount Heparin Sod,Pork in 0.45% 168.761 81.239 NaCl 25,000 unit In 0.45 % NaCl 1 250ml.bag @ 8. 165 UNITS/KG/HR 10 mls/hr IV .Q24H [facility] Rx#: [id number] Sodium Chloride 0.9% 1, 375 000 ml @ 75 mls/hr IV . [id number] [facility] Rx#:[id number] Oral 0 Output: Urine 1150 200 Other: Voiding Method Toilet Toilet Urinal Urinal # Voids 1 1 - Exam -GENERAL: The patient is alert and oriented x3, not in any acute distress. Obese HEENT: Pupils are round and equally reacting to light. EOMI. No scleral icterus. No conjunctival pallor. Normocephalic, atraumatic. No pharyngeal erythema. No thyromegaly. CARDIOVASCULAR: S1 and S2 present. No murmurs, rubs, or gallops. PULMONARY: Chest is clear to auscultation, no wheezing or crackles. ABDOMEN: Soft, nontender, nondistended, normoactive bowel sounds. No palpable organomegaly. MUSCULOSKELETAL: No joint swelling or deformity. EXTREMITIES: No cyanosis, clubbing, or pedal edema. NEUROLOGICAL: Gross neurological examination did not reveal any focal deficits. SKIN: No rashes. no petechiae. - Labs CBC & Chem 7: 11/03/20 06:46 11/03/20 06:46 Labs: Abnormal Lab Results - Last 24 Hours (Table) 11/02/20 11/02/20 11/02/20 Range/Units 13:44 13:44 15:58 APTT (22.0-30.0) sec D-Dimer 0.81 H (<0.60) mg/L FEU Sodium 134 L (137-145) mmol/L BUN 24 H (9-20) mg/dL Creatinine (0.66-1.25) mg/dL Glucose 186 H (74-99) mg/dL POC Glucose (mg/dL) 339 H (75-99) mg/dL Triglycerides (<150) mg/dL 11/02/20 11/02/20 11/03/20 Range/Units 17:08 20:37 02:06 APTT 30.7 H 40.3 H (22.0-30.0) sec D-Dimer (<0.60) mg/L FEU Sodium (137-145) mmol/L BUN (9-20) mg/dL Creatinine (0.66-1.25) mg/dL Glucose (74-99) mg/dL POC Glucose (mg/dL) 304 H (75-99) mg/dL Triglycerides (<150) mg/dL 11/03/20 11/03/20 11/03/20 Range/Units 06:16 06:46 06:46 APTT 53.1 H (22.0-30.0) sec D-Dimer (<0.60) mg/L FEU Sodium (137-145) mmol/L BUN 23 H (9-20) mg/dL Creatinine 1.28 H (0.66-1.25) mg/dL Glucose 142 H (74-99) mg/dL POC Glucose (mg/dL) 139 H (75-99) mg/dL Triglycerides 153 H (<150) mg/dL 11/03/20 Range/Units 12:38 APTT (22.0-30.0) sec D-Dimer (<0.60) mg/L FEU Sodium (137-145) mmol/L BUN (9-20) mg/dL Creatinine (0.66-1.25) mg/dL Glucose (74-99) mg/dL POC Glucose (mg/dL) 148 H (75-99) mg/dL Triglycerides (<150) mg/dL Assessment and Plan Assessment: Chest pain, rule out cardiac or pulmonary causes Dehydration Acute kidney injury Diabetes mellitus Hypertension History of asthma Plan: This is a pleasant 70 years old male who presents with chest pain, looks more pruritic like pain. Follow-up cardiac cath by cardiology team. We'll check V/Q scan for elevated d-dimer. Nephrology consult for elevated creatinine He is on IV fluids. Labs and medication were reviewed.. Continue same treatment. Continue with symptomatic treatment. Resume home medication. Monitor lytes and vitals. DVT and GI prophylaxis. Further recommendations depends on the clinical course of the patient DVT prophylaxis: heparin GI Prophylaxis: Ppi Prognosis is guarded
--- NOTE | 2020-11-03 13:01 | CC ---
CARDIAC CATHETERIZATION REPORT Mr. Canela is a 70-year-old male with a known history of mild coronary disease, who presented to the emergency room at [facility] with symptoms of chest discomfort. Initially, there was thought that he may have EKG changes consistent with an acute myocardial infarction, was transferred to [facility], was evaluated by Dr. Lyman and there was no evidence of myocardial infarction and his troponin was normal, but he persisted in having chest discomfort. In view of that, recommendation made regarding cardiac catheterization. The procedures, risks, and complication were discussed with the patient who is in full understanding and agreement. PROCEDURE: Patient was brought to the clinical laboratory manager in a fasting semi-sedated state after receiving fentanyl and Benadryl and achieving moderate conscious sedated state. Using Xylocaine anesthesia and Seldinger technique, a 6-St Lucian sheath was introduced in the right radial artery. Selective right and left coronary angiography performed using 5-St Lucian 4 bend, right and left Flor catheter. Multiple views of the coronary artery including hemiaxial views obtained. Following that, a 5-St Lucian tight pigtail catheter was introduced in the left ventricle and a 30-degree FINNEGAN view of the left ventricle was obtained. Following that, catheter and sheath were removed. Hemostasis was obtained with deployment of a TR band. There was no immediate complication. Patient is returned to his room in stable condition. Of note, the patient received 5000 units of intravenous heparin as well as intra-arterial verapamil. FINDINGS: FLUOROSCOPY: There was calcification involving the left main in the LAD. LEFT MAIN: This is a large-sized vessel, trifurcating into left circumflex, left anterior descending artery and ramus intermedius. Left main coronary artery has no evidence of high-grade stenosis. LEFT ANTERIOR DESCENDING ARTERY: This is a large-sized vessel reaching toward the apex. Tapers down distal third. The left anterior descending artery proximally has 10% to 20% plaque. The rest of the vessel has no high-grade stenosis. RAMUS INTERMEDIUS: This is a large-sized vessel, reaching toward the apical lateral wall. The ramus intermedius has no evidence of high-grade stenosis. LEFT CIRCUMFLEX: This is a nondominant vessel, giving rise to two moderately-sized obtuse marginal branch. The left circumflex has mild intimal disease, 10% to 20% without any evidence of high-grade stenosis. RIGHT CORONARY ARTERY: This is a large dominant vessel, bifurcating distally into PDA, posterolateral segment and branches. The right coronary artery has mild diffuse intimal disease throughout its course of 10% to 20% without any evidence of high-grade stenosis. LEFT VENTRICULOGRAM: Left ventriculogram was performed in 30-degree FINNEGAN view and revealed normal left ventricular size and systolic function, ejection fraction 60%. There was no significant mitral regurgitation. HEMODYNAMICS: There was no gradient across the aortic valve. The left ventricular end- diastolic pressure was 14-16 mmHg. CONCLUSION: 1. Calcified coronary arteries. 2. Mild triple-vessel coronary artery disease. 3. Preserved left ventricular size and systolic function. RECOMMENDATION: In view of finding anatomy, I recommend continue medical therapy with aggressive risk modifications being initiated. Those findings and recommendation were discussed with the patient and his family and they are in full understanding and agreement. Duration of sedation 22 minutes. BERONICA / BINTAN: [phone] /
--- NOTE | 2020-11-03 13:07 | LTR ---
DATE OF SERVICE: RE: Zachary Canela Dear Dr. Kaur; I had the pleasure to perform cardiac catheterization on Mr. Canela at [facility] on November 03, 2020 and a full copy of the procedure note will be forwarded to you. In brief, he was found to have mild triple-vessel coronary artery disease with no progression, compared with the images obtained in 2019 and based on those findings, I recommend continue medical therapy with aggressive course of medication initiated. Thank you again for allowing me to participate in this patient's personal care. Please feel free to call for any questions. Sincerely yours, MD SHERRI VargasL / BINTAN: [phone] /
[2020-11-03 14:46] LABS: Hemoglobin A1C 9.7 % (4.0-6.0)
--- NOTE | 2020-11-03 16:32 | NM ---
EXAMINATION TYPE: NM pul vent and perfuse DATE OF EXAM: 11/03/2020 COMPARISON: Chest x-ray from yesterday HISTORY: Shortness of breath and chest pain. TECHNIQUE: Utilizing inhalation of 36.8 mCi Tc 99m DTPA aerosol and intravenous injection of 5.14 mC i of Tc 99m MAA, ventilation and perfusion images are acquired post injection in multiple projections . FINDINGS: Normal radiotracer distribution is noted on the perfusion images. Ventilation images are heterogeneou s believed related to patient's large body habitus. There is no evidence of mismatched defects. IMPRESSION: Low scintigraphic evidence for acute pulmonary embolism.
[2020-11-03 16:47] LABS: Glucose,Whole Blood 225 mg/dL (75-99)
--- NOTE | 2020-11-03 17:13 | XR ---
EXAMINATION: XR chest 2V DATE AND TIME: 11/03/2020 4:57 PM CLINICAL INDICATION: PHH; post vq scan TECHNIQUE: Departmental protocol COMPARISON: AP portable chest 11/02/2020 11:11 AM FINDINGS: The lungs are clear. The pleural spaces are negative. The cardiac silhouette is not enlarged. The remainder of the mediastinal silhouette is unremarkable. The skeletal structures and soft tissues are negative for acute findings. Old remodeled right sided r ib fractures noted. IMPRESSION: NO ACUTE PROCESS.
[2020-11-03 20:11] LABS: Glucose,Whole Blood 192 mg/dL (75-99)
[2020-11-03] MEDS: ATORVASTATIN 80 MG TAB PO SCH (20:16)
[2020-11-03] MEDS: HEPARIN SODIUM,PORCINE 5,000 UNIT/ML 1 ML VIAL SQ SCH (23:08)
[2020-11-04 05:55] LABS: Glucose,Whole Blood 129 mg/dL (75-99)
[2020-11-04] MEDS: INSULIN ASPART (NovoLOG) 100 UNIT/ML VIAL SQ SCH ×2 (06:22→12:13)
[2020-11-04] MEDS: INSULIN DETEMIR (LEVEMIR) 100 UNIT/ML SYR SQ SCH (06:25)
[2020-11-04] MEDS ORDERED: ASPIRIN 81 MG PO SCH (09:00)
[2020-11-04] MEDS: SYMBICORT 80-4.5 MCG INHALER INHALATION SCH (09:19)
[2020-11-04] MEDS: ASCORBIC ACID 500 MG TAB PO SCH (10:29)
[2020-11-04] MEDS: TAMSULOSIN 0.4 MG CAP.ER.24H PO SCH (10:29)
[2020-11-04] MEDS: lisinopriL 20 MG TAB PO SCH (10:29)
[2020-11-04] MEDS: GLIMEPIRIDE 4 MG TAB PO SCH (10:29)
[2020-11-04] MEDS: ZINC SULFATE 220 MG CAP PO SCH (10:29)
[2020-11-04] MEDS: METOPROLOL TARTRATE 50 MG TAB PO SCH (10:30)
[2020-11-04] MEDS: VENLAFAXINE HCL ER 75 MG CAP PO SCH (10:30)
[2020-11-04 10:46] VITALS: RESP 18
[2020-11-04] MEDS: HEPARIN SODIUM,PORCINE 5,000 UNIT/ML 1 ML VIAL SQ SCH (11:02)
[2020-11-04 11:51] LABS: Calcium 9.4 mg/dL (8.4-10.2); Potassium 4.9 mmol/L (3.5-5.1)
[2020-11-04 12:15] VITALS: BP 148/75; PULSE 77; TEMP 97.3
[2020-11-04 12:20] LABS: Glucose,Whole Blood 230 mg/dL (75-99)
--- NOTE | 2020-11-04 12:46 | P.PN ---
Subjective Pt is seen and examined sitting up in the chair in no acute distress. He underwent cardiac catheterization revealing calcified arteries with mild triple- vessel coronary artery disease that is nonobstructive with preserved LV systolic size and function. He denies symptoms of chest pain, shortness of breath, dizziness or palpitations. Blood pressure 148/75 heart rate 77 afebrile maintaining oxygen saturation on room air. Laboratory data reviewed, sodium 136, potassium 4.9 and creatinine 1.37. Currently maintained on aspirin 81 mg daily, atorvastatin 80 mg at bedtime, lisinopril 40 mg daily and metoprolol 50 mg twice a day. GENERAL: Well-appearing, well-nourished and in no acute distress. NECK: Supple without JVD or thyromegaly. LUNGS: Breath sounds clear to auscultation bilaterally. Respiration equal and unlabored. No wheezes, rales or rhonchi. HEART: Regular rate and rhythm without murmurs, rubs or gallops. S1 and S2 heard. EXTREMITIES: Normal range of motion, no edema. No clubbing or cyanosis. Peripheral pulses intact. Right radial access site soft, non-tender with strong pulse. ASSESSMENT Chest pain, atypical for angina Hypertension Diabetes mellitus Dyslipidemia PLAN Stable for discharge from a cardiac perspective. Follow up with Dr. Johnson in 1-week. Nurse Practitioner note has been reviewed, I agree with a documented findings and plan of care. Patient was seen and examined. Objective - Vital Signs Vital signs: Vital Signs Temp 97.3 F L 11/04/20 12:00 Pulse 77 11/04/20 12:00 Resp 18 11/04/20 12:00 BP 148/75 11/04/20 12:00 Pulse Ox 94 L 11/04/20 12:00 Intake & Output 11/03/20 11/04/20 11/04/20 18:59 06:59 18:59 Intake Total 1091.239 240 Output Total 500 500 Balance 591.239 -500 240 Weight 119.6 kg Intake: IV 50 Intake, IV Titration 81.239 Amount Heparin Sod,Pork in 0.45% 81.239 NaCl 25,000 unit In 0.45 % NaCl 1 250ml.bag @ 8. 165 UNITS/KG/HR 10 mls/hr IV .Q24H [facility] Rx#: [id number] Oral 960 240 Output: Urine 500 500 Other: Voiding Method Toilet Toilet Urinal Urinal # Voids 2 1 - Labs CBC & Chem 7: 11/03/20 06:46 11/04/20 10:35 Labs: Abnormal Lab Results - Last 24 Hours (Table) 11/03/20 11/03/20 11/03/20 Range/Units 06:46 12:38 16:45 Sodium (137-145) mmol/L Carbon Dioxide (22-30) mmol/L BUN (9-20) mg/dL Creatinine (0.66-1.25) mg/dL Glucose (74-99) mg/dL POC Glucose (mg/dL) 148 H 225 H (75-99) mg/dL Hemoglobin A1c 9.7 H (4.0-6.0) % 11/03/20 11/04/20 11/04/20 Range/Units 20:09 05:52 10:35 Sodium 136 L (137-145) mmol/L Carbon Dioxide 31 H (22-30) mmol/L BUN 25 H (9-20) mg/dL Creatinine 1.37 H (0.66-1.25) mg/dL Glucose 295 H (74-99) mg/dL POC Glucose (mg/dL) 192 H 129 H (75-99) mg/dL Hemoglobin A1c (4.0-6.0) % 11/04/20 Range/Units 12:08 Sodium (137-145) mmol/L Carbon Dioxide (22-30) mmol/L BUN (9-20) mg/dL Creatinine (0.66-1.25) mg/dL Glucose (74-99) mg/dL POC Glucose (mg/dL) 230 H (75-99) mg/dL Hemoglobin A1c (4.0-6.0) %
[2020-11-04 14:50] VITALS: BMI 34.7
[2020-11-04 15:16] LABS: Appearance,Urine Clear (Clear); Bilirubin,Urine Negative (Negative); Blood,Urine Negative (Negative); Color,Urine Light Yellow; Glucose,Urine (UA) 4+ (Negative); Ketones,Urine Negative (Negative); Leukocyte Esterase,Urine Negative (Negative); Nitrite,Urine Negative (Negative); Protein,Urine Negative (Negative); Urobilinogen,Urine <2.0 mg/dL (<2.0)
--- NOTE | 2020-11-04 15:27 | CONS ---
CONSULTATION REASON FOR CONSULT: Renal insufficiency. HISTORY OF PRESENT ILLNESS: The patient is a 70-year-old male who was initially admitted to the hospital on 11/02/2020 with complaints of chest pain. He was transferred from [facility] for cardiac catheterization. His cardiac cath was performed yesterday on 11/03/2020 and showed mild triple-vessel disease. No intervention was done. Patient denies any prior history of kidney diseases. He does follow up regularly with his primary care physician. Serum creatinine was noted to be 1.19 on 11/02/2020 and yesterday it was 1.28. The patient denies use of any nonsteroidal anti-inflammatory agents. Blood pressure has not been low; in fact, it is slightly on the higher side. At home, patient is maintained on BRIE inhibitors in the form of Zestril 40 mg p.o. daily. He currently has some urinary symptoms suggestive of BPH and is maintained on Flomax at home. 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 PAST SURGICAL HISTORY: Cardiac catheterization done yesterday. SOCIAL HISTORY: Patient is a former smoker. No history of drug abuse or alcohol abuse. REVIEW OF SYSTEMS: As per HPI. Other systems negative. HOME MEDICATIONS: Medications at home prior to admission included Lipitor, Amaryl, Mag-Ox, Co-Q10, metformin, Tylenol, glucosamine, Flomax, Zestril, vitamin C, aspirin, metoprolol, Effexor, zinc. ALLERGIES: ALLERGIES include TRULICITY, NEXIUM, AND NSAIDS. PHYSICAL EXAMINATION: Patient is comfortable, awake, alert, oriented x3, not in any acute distress. Blood pressure 158/89, heart rate 81 per minute. He is afebrile. EXAMINATION OF THE HEART: S1 and S2. EXAMINATION OF LUNGS: Bilateral breath sounds are heard. ABDOMEN: Soft, non-tender. Examination of lower extremities shows no evidence of edema. BUSINESS OFFICE TECHNICIAN exam is grossly intact. LABS: Labs show sodium of 137, potassium 4.2, chloride 105, BUN 23, creatinine 1.28, hemoglobin 14.5 g/dL. UA is not available. ASSESSMENT: 1. Acute kidney injury, most likely prerenal. Continue with the BRIE inhibitors for now. The patient did have the cardiac catheterization yesterday. He currently has no significant urinary symptoms. He can be discharged from nephrology standpoint with repeat labs to be done in about one week's time as outpatient. I will also check a urinalysis prior to discharge. 2. Chest pain, status post cardiac catheterization which showed mild disease with no need for intervention. 3. Type 2 diabetes. The patient can resume his metformin as long as his renal function does not get worse. His GFR as of yesterday was at 56 mL/minute with a creatinine of 1.28. 4. Hypertension, currently uncontrolled. Continue with current medications. Hopefully once patient is discharged, his pressure will be better. We can add calcium channel blockers if it remains uncontrolled. PLAN: Patient can be discharged from nephrology standpoint. Repeat labs in about 5-7 days as outpatient post discharge. Continue with the BRIE inhibitors for now. Thank you for this consultation. BERONICA / SHARI: [id number] /
--- NOTE | 2020-11-05 00:53 | P.DS ---
Providers Date of admission: 11/02/20 13:23 Attending physician: Dudley Espinoza MD Consults: 11/02/20 12:26 Consult Physician Routine Consulting Provider: Carole Lyman Consult Reason/Comments: [place] Do you want consulting provider notified?: Already Contacted 11/03/20 12:58 Consult Physician Urgent Consulting Provider: Lisha Mayen Consult Reason/Comments: saba, patient is getting cardiac cath Do you want consulting provider notified?: Yes Primary care physician: Maximiliano Kaur Hospital Course: Diagnoses: Chest pain, cardiac causes were ruled out by normal cardiac cath, pulmonary causes ruled out Elevated d-dimer, V/Q scan low probability for PE, ultrasound negative for lower extremity DVT Dehydration, improved and patient is back to normal Chronic kidney disease rather than acute kidney injury Diabetes mellitus Hypertension History of asthma Hospital course: This is a pleasant 70 years old male with past medical history of asthma, diabetes mellitus, hypertension Presents because of chest pain of one-day duration associated with difficulty breathing, chest pain . No symptoms improved prior to discharge. Wash Tank Tender evaluated the patient and he underwent cardiac cath which was unremarkable and semiconductor wafers tester and cleared for discharge. Because of his chronic kidney disease, CTA of the chest could not be done due to his elevated d-dimer, instead the/Q scan was done along low probability for PE. Also he has negative ultrasound of the lower extremity. Since his chest pain resolved and on workup was negative patient was cleared for discharge Also refinery operator assistant evaluated the patient and cleared him for discharge and follow-up as an outpatient, appointments made for the patient with Dr. mayen on 11/11 and states he will follow-up. Patient was started to be discharged, he was asymptomatic and he was walking in the room were freely, patient stated that if he will not be discharged today he will leave AMA Patient was cleared for discharge by semiconductor wafers tester and refinery operator assistant Problems and management plan were discussed with the patient and he verbalized understanding and acceptance Patient was found stable and can be discharged home however he needs follow-up as an outpatient. Patient was instructed to follow up with PCP within one week and patient agrees with the appointments made for him on 11/08, and also with the appointment with Dr. Mayen on 11/11 and states he will follow-up. Also patient was instructed to follow up with semiconductor wafers tester Dr. Johnson in 1-2 weeks and he agrees to call and make his own appointments Gen: patient is a AAOx3, no distress CVS: S1-S2, RRR, no murmur Lungs: B/L CTA, no wheezing Abdomen: soft, no distention, no tenderness, positive bowel sounds Extremity: no leg edema or induration Time spent more than 35 minutes Patient Condition at Discharge: Fair Plan - Discharge Summary Discharge Rx Participant: Yes New Discharge Prescriptions: Continue metFORMIN HCL 1,000 mg PO BID Glimepiride [Amaryl] 4 mg PO BID Magnesium Oxide [Mag-Ox] 500 mg PO BID Atorvastatin [Lipitor] 80 mg PO HS Ubidecarenone [Co Q-10] 100 mg PO DAILY HYDROcodone/APAP 10-325MG [Caldwell 10-325] 1 tab PO TID PRN PRN Reason: Pain lisinopriL [Zestril] 40 mg PO DAILY Tamsulosin [Flomax] 0.4 mg PO DAILY Glucosam/Rao-Msm1/C/Moody/Bosw [Glucosamine-Chondroitin Tablet] 1 tab PO DAILY Zinc 50 mg PO DAILY Ascorbic Acid [Vitamin C] 500 mg PO DAILY Budesonide/Formoterol Fumarate [Symbicort 80-4.5 Mcg Inhaler] 2 puff INHALATION RT-BID Aspirin EC [Ecotrin Low Dose] 81 mg PO DAILY Venlafaxine HCl [Effexor XR] 75 mg PO BID Metoprolol Tartrate [Lopressor] 50 mg PO BID Ipratropium/Albuterol Sulfate [Combivent Respimat Inhaler] 1 puff INHALATION RT-QID PRN PRN Reason: Shortness Of Breath Insulin Glargine,Hum.rec.anlog [Lantus Solostar] 28 unit SQ BID Multivit-Min/FA/Lycopen/Lutein [Centrum Silver Tablet] 1 tab PO DAILY Discontinued Acetaminophen [Tylenol] 1,000 mg PO Q4-6H PRN PRN Reason: Pain Discharge Medication List Atorvastatin [Lipitor] 80 mg PO HS 07/01/18 [History] Glimepiride [Amaryl] 4 mg PO BID 07/01/18 [History] Magnesium Oxide [Mag-Ox] 500 mg PO BID 07/01/18 [History] Ubidecarenone [Co Q-10] 100 mg PO DAILY 07/01/18 [History] metFORMIN HCL 1,000 mg PO BID 07/01/18 [History] Glucosam/Rao-Msm1/C/Moody/Bosw [Glucosamine-Chondroitin Tablet] 1 tab PO DAILY 04/23/19 [History] HYDROcodone/APAP 10-325MG [Caldwell 10-325] 1 tab PO TID PRN 04/23/19 [History] Tamsulosin [Flomax] 0.4 mg PO DAILY 04/23/19 [History] lisinopriL [Zestril] 40 mg PO DAILY 04/23/19 [History] Ascorbic Acid [Vitamin C] 500 mg PO DAILY 11/02/20 [History] Aspirin EC [Ecotrin Low Dose] 81 mg PO DAILY 11/02/20 [History] Budesonide/Formoterol Fumarate [Symbicort 80-4.5 Mcg Inhaler] 2 puff INHALATION RT-BID 11/02/20 [History] Insulin Glargine,Hum.rec.anlog [Lantus Solostar] 28 unit SQ BID 11/02/20 [History] Ipratropium/Albuterol Sulfate [Combivent Respimat Inhaler] 1 puff INHALATION RT- QID PRN 11/02/20 [History] Metoprolol Tartrate [Lopressor] 50 mg PO BID 11/02/20 [History] Multivit-Min/FA/Lycopen/Lutein [Centrum Silver Tablet] 1 tab PO DAILY 11/02/20 [History] Venlafaxine HCl [Effexor XR] 75 mg PO BID 11/02/20 [History] Zinc 50 mg PO DAILY 11/02/20 [History] Follow up Appointment(s)/Referral(s): Lisha Mayen MD [STAFF PHYSICIAN] - 11/11/20 1:00 pm (Kidney specialist. Please follow up within one week of being discharged.) Zainab Johnson MD [STAFF PHYSICIAN] - 1 Week (Wash Tank Tender. Please follow up within one week of being discharged.) Edinson Cochran MD [STAFF PHYSICIAN] - 2 Weeks (Flotation Operator. Please follow up regarding chronic shortness of breath.) Maximiliano Kaur MD [Primary Care Provider] - 11/08/20 3:15 pm (Please send paperwork to family doctor.) [facility] Visiting Nurse, [NON-STAFF] - 1-[address] [facility],Clinic [REFERRING] - 1 Week (Please send paperwork to Zulma GONZALEZ.) Patient Instructions/Handouts: Acute Kidney Injury (DC), Hypomagnesemia (DC), After Radial Heart Catheterization (GEN) Activity/Diet/Wound Care/Special Instructions: Resume Metformin in 48 hours - resume taking on November 05 morning. Heart healthy diet Activity is restricted till you see your doctor Discharge Disposition: HOME SELF-CARE
== END 2020-11-04 16:41 | disposition home or self-care (01) | DRG 287 ==
LOC: EC 10:49 → 3SCARD 13:23
PROVIDERS: ADMIT Internal Medicine; ATTEND Internal Medicine
PROC: 4A023N7 Measurement of Cardiac Sampling and Pressure, Left Heart, Percutaneous Approach (ICD-10-PCS; principal; 2020-11-03 11:30)
PROC: B2111ZZ Fluoroscopy of Multiple Coronary Arteries using Low Osmolar Contrast (ICD-10-PCS; principal; 2020-11-03 11:30)
DX: R07.89 Other chest pain (principal); N17.9 Acute kidney failure, unspecified; J98.11 Atelectasis; I25.10 Atherosclerotic heart disease of native coronary artery without angina pectoris; N40.0 Benign prostatic hyperplasia without lower urinary tract symptoms; E78.5 Hyperlipidemia, unspecified; E66.9 Obesity, unspecified; J45.909 Unspecified asthma, uncomplicated; I51.7 Cardiomegaly; N18.2 Chronic kidney disease, stage 2 (mild); I13.10 Hypertensive heart and chronic kidney disease without heart failure, with stage 1 through stage 4 chronic kidney disease, or unspecified chronic kidney disease; L29.9 Pruritus, unspecified; E11.22 Type 2 diabetes mellitus with diabetic chronic kidney disease; E83.42 Hypomagnesemia; E86.0 Dehydration; Z87.891 Personal history of nicotine dependence; Z80.0 Family history of malignant neoplasm of digestive organs; Z79.899 Other long term (current) drug therapy; Z79.82 Long term (current) use of aspirin; Z79.51 Long term (current) use of inhaled steroids; Z79.4 Long term (current) use of insulin; Z68.34 Body mass index [BMI] 34.0-34.9, adult; Z88.6 Allergy status to analgesic agent; Z88.8 Allergy status to other drugs, medicaments and biological substances; Z98.890 Other specified postprocedural states
CPT/HCPCS: 36415; 71045; 71046; 78582; 80048; 80053; 80061; 81003; 82550; 83036; 83735; 84484; 85025; 85379; 85610; 85730; 93005; 93306; 93458; 93970; 94640; 96365; 96366; 96368; 99291

== ENCOUNTER → 2022-11-23 | Outpatient (CLI) | payer MEDICARE ==
--- NOTE | 2022-11-23 16:20 | CT ---
EXAMINATION TYPE: CT chest wo con DATE OF EXAM: 11/23/2022 COMPARISON: Radiograph 11/03/2020 HISTORY: 72-year-old male J42, Bronchitis and SOB. TECHNIQUE: Contiguous axial scanning of the chest without IV contrast. Coronal and sagittal reconstru ctions performed. CT DLP: 646.20 mGycm Automated exposure control for dose reduction was used. FINDINGS: Heart normal size without pericardial effusion. LAD, RCA, and proximal circumflex coronary artery norma cifications are noted. Ectatic ascending aorta 3.9 cm. Mild metastatic arch calcifications. Convex shortness of breath anato my. Borderline to mildly enlarged 1.3 cm right paratracheal node probably reactive/post inflammatory. Oth erwise, no thoracic lymphadenopathy by CT size criteria. Dependent atelectasis. Mild groundglass changes and strandy densities in the lower lungs. Minimal emp hysematous change. Otherwise, no consolidation or pleural effusion. Old healed right posterior rib fracture deformities. Visualized upper abdomen shows anterior splenule. Mild stool burden. No pericolic inflammatory change . Extensive DISH throughout the mid and lower thoracic spine. IMPRESSION: 1. COPD WITH MILD EMPHYSEMA. 2. STRANDY SCARRING OR ATELECTASIS IN THE LOWER LUNGS. THERE IS SOME FAINT GROUNDGLASS CHANGE WELL THAT MAY BE SEEN WITH DIP AND LESS LIKELY NSIP. CLINICALLY CORRELATE. 3. SCATTERED CORONARY ARTERY CALCIFICATIONS ESPECIALLY LAD AND RCA.
== END | disposition home or self-care (01) ==
LOC: RADCTMAIN 14:22
PROVIDERS: ATTEND Internal Medicine Critical Care Medicine
DX: J42 Unspecified chronic bronchitis (principal); J43.9 Emphysema, unspecified; I25.10 Atherosclerotic heart disease of native coronary artery without angina pectoris
CPT/HCPCS: 36415; 71250; 82565; 84520

== ENCOUNTER 2023-06-07 17:26 | Observation (INO) | payer MEDICARE ==
--- NOTE | 2023-06-07 18:30 | ED ---
General Adult HPI - General Chief complaint: Weakness Stated complaint: Weakness Time Seen by Provider: 06/07/23 17:44 Source: patient, RN/MD, RN notes reviewed, old records reviewed (Reviewed records from transferring facility, respiratory hospital.) Mode of arrival: EMS Limitations: no limitations - History of Present Illness Initial comments: Patient is a pleasant 73-year-old male presenting to the emergency department general weakness. Onset of symptoms was morning. Patient states he just did not feel well. Patient took blood pressure at home as low. Patient called his doctor who advised to go to the hospital. Patient did go to the hospital and was given fluids and transferred here. Patient states he feels much better at this time. Patient was able to get up and stand without difficulty - Related Data Home Medications Medication Instructions Recorded Confirmed Atorvastatin [Lipitor] 80 mg PO HS 07/01/18 11/02/20 Glimepiride [Amaryl] 4 mg PO BID 07/01/18 11/02/20 Magnesium Oxide [Mag-Ox] 500 mg PO BID 07/01/18 11/02/20 Ubidecarenone [Co Q-10] 100 mg PO DAILY 07/01/18 11/02/20 metFORMIN HCL [Glucophage] 1,000 mg PO BID 07/01/18 11/02/20 Glucosam/Rao-Msm1/C/Moody/Bosw 1 tab PO DAILY 04/23/19 11/02/20 [Glucosamine-Chondroitin Tablet] HYDROcodone/APAP 10-325MG [Brinkley 1 tab PO TID PRN 04/23/19 11/02/20 10-325] Tamsulosin [Flomax] 0.4 mg PO DAILY 04/23/19 11/02/20 lisinopriL [Zestril] 40 mg PO DAILY 04/23/19 11/02/20 Ascorbic Acid [Vitamin C] 500 mg PO DAILY 11/02/20 11/02/20 Aspirin EC [Ecotrin Low Dose] 81 mg PO DAILY 11/02/20 11/02/20 Budesonide/Formoterol Fumarate 2 puff INHALATION RT-BID 11/02/20 11/02/20 [Symbicort 80-4.5 Mcg Inhaler] Insulin Glargine,Hum.rec.anlog 28 unit SQ BID 11/02/20 11/02/20 [Lantus Solostar Pen] Ipratropium/Albuterol Sulfate 1 puff INHALATION RT-QID PRN 11/02/20 11/02/20 [Combivent Respimat Inhaler] Metoprolol Tartrate [Lopressor] 50 mg PO BID 11/02/20 11/02/20 Multivit-Min/FA/Lycopen/Lutein 1 tab PO DAILY 11/02/20 11/02/20 [Centrum Silver Tablet] Venlafaxine HCl [Effexor XR] 75 mg PO BID 11/02/20 11/02/20 Zinc 50 mg PO DAILY 11/02/20 11/02/20 Allergies Allergy/AdvReac Type Severity Reaction Status Date / Time dulaglutide [From Trulicity] Allergy Diarrhea,NAUSEA, Verified 11/02/20 12:07 ABD PAIN ,VERY TIRED esomeprazole [From Nexium] Allergy Unknown Verified 11/02/20 12:07 NSAIDS (Non-Steroidal AdvReac Unknown Verified 11/02/20 12:07 Anti-Inflamma Review of Systems ROS Statement: Those systems with pertinent positive or pertinent negative responses have been documented in the HPI. ROS Other: All systems not noted in ROS Statement are negative. Constitutional: Denies: fever Eyes: Denies: eye pain ENT: Denies: ear pain Respiratory: Denies: cough Cardiovascular: Denies: chest pain Endocrine: Reports: fatigue Gastrointestinal: Denies: abdominal pain Genitourinary: Denies: urgency 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, NEUROPATHY , STAGE 2 RENAL FAILURE, SHORTNESS OF BREATH, History of Any Multi-Drug Resistant Organisms: None Reported Past Surgical History: Heart Catheterization, Orthopedic Surgery Additional Past Surgical History / Comment(s): STAGE 2 RENAL FAILURE, knee replacement, shoulder replacement, knee scope. Past Anesthesia/Blood Transfusion Reactions: No Reported Reaction Additional Past Anesthesia/Blood Transfusion Reaction / Comment(s): PREVIOUSLY STATES WOKE UP A CHILD " Past Psychological History: Anxiety, Depression, PTSD Smoking Status: Never smoker Past Alcohol Use History: Rare Past Drug Use History: None Reported - Past Family History Mother Family Medical History: Cancer Additional Family Medical History / Comment(s): COLON CANCER Father Family Medical History: Cancer Additional Family Medical History / Comment(s): COLON CANCER General Exam Limitations: no limitations General appearance: alert, in no apparent distress Head exam: Present: normocephalic Eye exam: Present: normal appearance Neck exam: Present: normal inspection Respiratory exam: Present: normal lung sounds bilaterally Cardiovascular Exam: Present: regular rate, normal rhythm, normal heart sounds GI/Abdominal exam: Present: soft. Absent: tenderness Extremities exam: Present: normal inspection. Absent: pedal edema, calf tenderness Neurological exam: Present: alert Psychiatric exam: Present: normal affect, normal mood Skin exam: Present: normal color Course Vital Signs 06/07/23 06/07/23 06/07/23 17:29 17:44 18:00 Temperature 97.6 F Pulse Rate 63 64 65 Respiratory 18 18 18 Rate Blood Pressure 120/82 120/82 120/82 O2 Sat by Pulse 95 95 Oximetry 06/07/23 06/07/23 18:30 19:00 Temperature Pulse Rate 65 Respiratory 18 18 Rate Blood Pressure 126/78 126/81 O2 Sat by Pulse 94 L 93 L Oximetry EKG Findings - EKG Results: EKG: interpreted by SHARA (First-degree AV block SD of 233.), sinus rhythm, normal axis, normal QRS, normal ST/T Medical Decision Making - Medical Decision Making Was pt. sent in by a medical professional or institution (, PA, SOLUTION CONSULTANT, urgent care, hospital, or skilled nursing...) When possible be specific @ -Patient was sent from [facility] Did you speak to anyone other than the patient for history (EMS, parent, family, police, friend...)? What history was obtained from this source @ -No Did you review nursing and triage notes (agree or disagree)? Why? @ -I reviewed and agree with nursing and triage notes Were old charts reviewed (outside hosp., previous admission, EMS record, old EKG, old radiological studies, urgent care reports/EKG's, skilled nursing records)? Report findings @ -No old charts were reviewed Differential Diagnosis (chest pain, altered mental status, abdominal pain women, abdominal pain men, vaginal bleeding, weakness, fever, dyspnea, syncope, headache, dizziness, GI bleed, back pain, seizure, CVA, palpatations, mental health, musculoskeletal)? @ -Differential Weakness: Hypoglycemia, shock, sepsis, hyponatremia, anemia, infection, NH, ETOH, adverse medicine reaction, overdose, stroke, this is not meant to be an all-inclusive list. EKG interpreted by me (3pts min.). @ -As above X-rays interpreted by me (1pt min.). @ -None done CT interpreted by me (1pt min.). @ -None done U/S interpreted by me (1pt. min.). @ -None done What testing was considered but not performed or refused? (CT, X-rays, U/S, labs)? Why? @ -None What meds were considered but not given or refused? Why? @ -None Did you discuss the management of the patient with other professionals (professionals i.e. Dr., PA, SOLUTION CONSULTANT, lab, RT, psych nurse, social work manager, aviation safety inspector, teacher, student liaison officer, insurance case manager)? Give summary @ -Case was discussed with practitioner Diana Guthrie, who will admit covering , who admits for Dr. Velasco. Was smoking cessation discussed for >3mins.? @ -No Was critical care preformed (if so, how long)? @ -No Were there social determinants of health that impacted care today? How? (Homelessness, low income, unemployed, alcoholism, drug addiction, transportation, low edu. Level, literacy, decrease access to med. care, prison, rehab)? @ -No Was there de-escalation of care discussed even if they declined (Discuss DNR or withdrawal of care, Hospice)? DNR status @ -No What co-morbidities impacted this encounter? (DM, HTN, Smoking, COPD, CAD, Cancer, CVA, ARF, Chemo, Hep., AIDS, mental health diagnosis, sleep apnea, morbid obesity)? @ -None Was patient admitted / discharged? Hospital course, mention meds given and route , prescriptions, significant lab abnormalities, going to OR and other pertinent info. @ -Patient reevaluated and remained stable. Patient had hypotensive episode with blood pressure in the mid 70s and required several liters of fluids. Patient will be held for observation and further evaluation in the morning. Undiagnosed new problem with uncertain prognosis? @ -No Drug Therapy requiring intensive monitoring for toxicity (Heparin, Nitro, Insulin, Cardizem)? @ -No Were any procedures done? @ -No Diagnosis/symptom? @ -Hypotensive episode Acute, or Chronic, or Acute on Chronic? @ -Acute Uncomplicated (without systemic symptoms) or Complicated (systemic symptoms)? @ -default Side effects of treatment? @ -No Exacerbation, Progression, or Severe Exacerbation? @ -No Poses a threat to life or bodily function? How? (Chest pain, [place], NH, pneumonia, PE, COPD, DKA, ARF, appy, cholecystitis, CVA, Diverticulitis, Homicidal, Suicidal, threat to staff... and all critical care pts) @ -No Disposition Clinical Impression: Hypotensive episode Disposition: ADMITTED IP TO THIS HOSP Is patient prescribed a controlled substance at d/c from ED?: No Referrals: Josias Li MD [Primary Care Provider] - 1-2 days Time of Disposition: 19:19
[2023-06-07] MEDS ORDERED: NALOXONE 0.4 MG/ML 1 ML VIAL IV PRN (19:20)
[2023-06-07] MEDS ORDERED: ACETAMINOPHEN TAB 325 MG TAB PO PRN (19:20)
[2023-06-07 20:51] LABS: Appearance,Urine Clear (Clear); Bilirubin,Urine Negative (Negative); Blood,Urine Negative (Negative); Color,Urine Yellow; Glucose,Urine (UA) 4+ (Negative); Ketones,Urine Negative (Negative); Leukocyte Esterase,Urine Negative (Negative); Nitrite,Urine Negative (Negative); Protein,Urine Negative (Negative); Specific Gravity,Urine 1.029 (1.001-1.035); Urobilinogen,Urine <2.0 mg/dL (<2.0)
[2023-06-07] MEDS ORDERED: DEXTROSE 50% SYRINGE 50 ML IVP PRN ×2 (21:41)
[2023-06-07] MEDS ORDERED: HYDROcodone/APAP 10-325MG 1 EACH TAB PO PRN (21:42)
[2023-06-07] MEDS ORDERED: ATORVASTATIN 80 MG TAB PO SCH (21:45)
[2023-06-07] MEDS ORDERED: ASPIRIN 81 MG PO SCH (21:45)
[2023-06-07] MEDS ORDERED: MULTIVITAMINS, THERA 1 EACH TAB PO SCH (22:00)
[2023-06-07] MEDS ORDERED: MAGNESIUM OXIDE 400 MG TAB PO SCH (22:00)
[2023-06-07] MEDS ORDERED: NON FORMULARY DRUG (Glucosam/Chon-Msm1/C/Mang/Bosw [Glucosamine-Chondroitin Tablet] 1 EACH PO SCH (22:00)
[2023-06-07] MEDS ORDERED: FENOFIBRATE 160 MG TAB PO SCH (22:00)
[2023-06-07 22:17] LABS: Glucose,Whole Blood 258 mg/dL (70-110)
[2023-06-07] MEDS: METOPROLOL TARTRATE 50 MG TAB PO SCH (22:18)
[2023-06-07] MEDS: VENLAFAXINE HCL ER 75 MG CAP PO SCH (22:18)
[2023-06-07] MEDS: INSULIN DETEMIR (LEVEMIR) 100 UNIT/ML SYR SQ SCH (22:18)
[2023-06-07] MEDS: SODIUM CHLORIDE 0.9% 1,000 ML IV SCH (22:19)
[2023-06-07] MEDS ORDERED: ALBUTEROL NEBULIZED 1.25 MG/3 ML INHALATION PRN (23:08)
[2023-06-07] MEDS ORDERED: ONDANSETRON 4 MG/2 ML VIAL IVP PRN (23:10)
[2023-06-08] MEDS: HEPARIN SODIUM,PORCINE/PF 5,000 UNIT/0.5 ML SYRINGE SQ SCH ×2 (02:45→10:13)
[2023-06-08 06:23] LABS: Glucose,Whole Blood 151 mg/dL (70-110)
[2023-06-08] MEDS: INSULIN ASPART (NovoLOG) 100 UNIT/ML VIAL SQ SCH ×4 (06:40→12:48)
[2023-06-08 07:42] VITALS: RESP 16
[2023-06-08] MEDS ORDERED: SYMBICORT 160-4.5 MCG INHALER INHALATION SCH (08:00)
[2023-06-08] MEDS ORDERED: DAPAGLIFLOZIN PROPANEDIOL 10 MG TABLET PO SCH (09:00)
[2023-06-08] MEDS ORDERED: TAMSULOSIN 0.4 MG CAP.ER.24H PO SCH (09:00)
[2023-06-08] MEDS: IPRATROPIUM-ALBUTEROL 3 ML NEB INHALATION SCH ×2 (09:03→12:17)
[2023-06-08 09:50] LABS: Basophils # (A) 0.06 X 10*3/uL (0.00-0.10); Basophils % (A) 0.9 %; Eosinophils # (A) 0.21 X 10*3/uL (0.04-0.35); Eosinophils % (A) 3.2 %; HCT 41.8 % (39.6-50.0); HGB 13.6 d/dL (12.0-15.0); Lymphocytes # (A) 1.33 X 10*3/uL (0.90-5.00); Lymphocytes % (A) 20.2 %; MCH 30.3 pg (27.0-32.0); MCHC 32.5 d/dL (32.0-37.0); MCV 93.1 FL (80.0-97.0); Mean Platelet Volume 9.8 FL (9.5-12.2); Monocytes # (A) 0.92 X 10*3/uL (0.20-1.00); NRBC Per 100 WBC 0 X 10*3/uL (0.00-0.01); Neutrophils # (A) 3.84 X 10*3/uL (1.80-7.70); Neutrophils % (A) 58.2 %; Platelet Count 186 X 10*3/uL (140-440); RBC 4.49 X 10*6/uL (4.40-5.60); RDW 13.5 % (11.5-14.5); WBC 6.59 X 10*3/uL (4.50-10.00)
[2023-06-08 10:10] LABS: BUN/Creat Ratio 14.71 Ratio (12.00-20.00); Carbon Dioxide 23.5 mmol/L (21.6-31.8); Chloride 106 mmol/L (96-109); Glucose 157 mg/dL (70-110); Potassium 4.7 mmol/L (3.5-5.5); Sodium 138 mmol/L (135-145)
[2023-06-08] MEDS: VENLAFAXINE HCL ER 75 MG CAP PO SCH (10:13)
[2023-06-08] MEDS: METOPROLOL TARTRATE 50 MG TAB PO SCH (10:14)
[2023-06-08] MEDS: SODIUM CHLORIDE 0.9% 1,000 ML IV SCH (10:14)
[2023-06-08] MEDS: INSULIN DETEMIR (LEVEMIR) 100 UNIT/ML SYR SQ SCH (10:14)
[2023-06-08] MEDS ORDERED: METOPROLOL TARTRATE 50 MG TAB PO SCH (11:00)
[2023-06-08 12:06] LABS: Glucose,Whole Blood 231 mg/dL (70-110)
--- NOTE | 2023-06-08 13:04 | P.CRDCN ---
History of Present Illness Consult date: 06/08/23 Requesting physician: Ozzie Kumar Reason for Consult (text): hypotensive episode Chief complaint: hypotension History of present illness: This is A pleasant 73-year-old gentleman who follows with Dr. Johnson in the office. He has a history of hypertension, hyperlipidemia, COPD, and CAD. He w as seen in the office recently was stable at that time. Presented to the emergency department at [facility] with complaints of low blood pressure. He woke up and was doing fairly well yesterday. As the day progressed he became quite dizzy, weak, diaphoretic and nauseous. He initially felt it could be related to his blood sugar however after drinking apple juice and taking glucose tablets he continued to feel poorly and blood sugar was in the 300s. He subsequently checked his blood pressure which was in the 70s systolic. He then presented to the emergency room at [facility] and was given IV fluids. EKG was showed question of atrial fibrillation but upon review shows likely junctional rhythm with occasional PACs. He began to feel better upon arrival to the [facility] ER and his blood pressure was improving. He continues on IV fluids at 75 miles per hour. His beta stephen has been resumed at 100 mg by mouth twice a day which she was apparently taking this daily at home. His BRIE inhibitor and calcium channel stephen have been on hold. Labs showed a creatinine of 1.7 which is 1.8 October. He is feeling significantly better. Blood pressure has been normal to high. He's had no complaints of chest discomfort. He has had no palpitations. He's had no syncope. He denies complaints of edema but does have mild edema on exam. He complains of dyspnea on exertion but this has been stable. 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 Past Anesthesia/Blood Transfusion Reactions: No Reported Reaction Additional Past Anesthesia/Blood Transfusion Reaction / Comment(s): PREVIOUSLY STATES WOKE UP A CHILD " Past Psychological History: Anxiety, Depression, PTSD Smoking Status: Never smoker Past Alcohol Use History: Rare Past Drug Use History: None Reported - Past Family History Mother Family Medical History: Cancer Additional Family Medical History / Comment(s): COLON CANCER Father Family Medical History: Cancer Additional Family Medical History / Comment(s): COLON CANCER Medications and Allergies Home Medications Medication Instructions Recorded Confirmed Type Atorvastatin [Lipitor] 80 mg PO HS 07/01/18 06/07/23 History Magnesium Oxide [Mag-Ox] 750 mg PO DAILY 07/01/18 06/07/23 History Glucosam/Rao-Msm1/C/Moody/Bosw 1 tab PO HS 04/23/19 06/07/23 History [Glucosamine-Chondroitin Tablet] HYDROcodone/APAP 10-325MG [[place] 1 tab PO TID PRN 04/23/19 06/07/23 History 10-325] Tamsulosin [Flomax] 0.4 mg PO DAILY 04/23/19 06/07/23 History lisinopriL [Zestril] 40 mg PO DAILY 04/23/19 06/07/23 History Aspirin EC [Ecotrin Low Dose] 81 mg PO HS 11/02/20 06/07/23 History Insulin Glargine,Hum.rec.anlog 38 unit SQ BID 11/02/20 06/07/23 History [Lantus Solostar Pen] Ipratropium/Albuterol Sulfate 1 puff INHALATION RT-QID 11/02/20 06/07/23 History [Combivent Respimat Inhaler] Multivit-Min/FA/Lycopen/Lutein 1 tab PO HS 11/02/20 06/07/23 History [Centrum Silver Tablet] Venlafaxine HCl [Effexor XR] 75 mg PO BID 11/02/20 06/07/23 History Acetaminophen Tab [Tylenol Tab] 1,000 mg PO TID PRN 06/07/23 06/07/23 History Albuterol Nebulized [Ventolin 3 ml INHALATION RT-TID PRN 06/07/23 06/07/23 History Nebulized (Accuneb)] Empagliflozin [Jardiance] 25 mg PO DAILY 06/07/23 06/07/23 History Ergocalciferol [Vitamin D2 (1250 1,250 mcg PO Q14D 06/07/23 06/07/23 History Mcg = 94148 Iu)] Fluticasone Propion/Salmeterol 1 puff INHALATION RT-BID 06/07/23 06/07/23 Hi story [Fluticasone-Salmeterol 500-50] Insulin Aspart [NovoLOG Flexpen] 42 units SQ AC-TID 06/07/23 06/07/23 History L.rhamnosus/B.animalis(Lactis) 1 cap PO DAILY 06/07/23 06/07/23 History [Hubbard' Colon Hlth 3B Cfu Cp] Magnesium Oxide [Mag-Ox] 500 mg PO HS 06/07/23 06/07/23 History Metoprolol Tartrate [Lopressor] 100 mg PO BID 06/07/23 06/07/23 History Semaglutide [Ozempic] 0.5 mg PO FR 06/07/23 06/07/23 History Ubidecarenone [Coenzyme Q10] 200 mg PO DAILY 06/07/23 06/07/23 History Verapamil HCl [Calan Sr] 240 mg PO DAILY 06/07/23 06/07/23 History gemfibroziL [Lopid] 600 mg PO BID 06/07/23 06/07/23 History Allergies Allergy/AdvReac Type Severity Reaction Status Date / Time amlodipine Allergy Unknown Verified 06/07/23 20:56 dulaglutide [From Trulicity] Allergy Diarrhea,NAUSEA, Verified 06/07/23 20:56 ABD PAIN ,VERY TIRED esomeprazole [From Nexium] Allergy Unknown Verified 06/07/23 20:56 glipizide Allergy Unknown Verified 06/07/23 20:56 glyburide Allergy Unknown Verified 06/07/23 20:56 rosuvastatin [From Crestor] Allergy Unknown Verified 06/07/23 20:56 NSAIDS (Non-Steroidal AdvReac Unknown Verified 06/07/23 20:56 Anti-Inflamma Physical Exam Vitals: Vital Signs Temp Pulse Pulse Resp BP BP Pulse Ox 06/08/23 12:27 89 06/08/23 12:17 88 06/08/23 07:00 98.3 F 74 16 130/75 95 06/08/23 02:36 97.1 F L 77 15 161/84 95 06/07/23 21:16 97.8 F 61 16 151/83 95 06/07/23 20:28 97.8 F 65 18 125/68 94 L 06/07/23 19:00 18 126/81 93 L 06/07/23 18:30 65 18 126/78 94 L 06/07/23 18:00 65 18 120/82 95 06/07/23 17:44 64 18 120/82 95 06/07/23 17:29 97.6 F 63 18 120/82 Intake and Output 06/07/23 06/08/23 06/08/23 22:59 06:59 14:59 Intake Total 118 Balance 118 Intake: Oral 118 Other: Voiding Method Toilet # Voids 1 2 Weight 147.418 kg PHYSICAL EXAMINATION: This is a 73-year-old male in no apparent distress at the time of my examination. HEENT: Head is atraumatic, normocephalic. Pupils are equal, round. Sclerae anicteric. Conjunctivae are clear. Mucous membranes of the mouth are moist. Neck is supple. There is no elevated jugular venous pressure. No carotid bruit is heard. CHEST EXAMINATION: Lungs with diminished air entry bilaterally. No wheezes rales or rhonchi. Respirations even and nonlabored. HEART EXAMINATION: Heart regular, positive S1 and S2. No S3. No S4. No clicks, rubs or murmurs. ABDOMEN: Soft, obese, nontender. Bowel sounds are heard. No organomegaly noted. EXTREMITIES: 2+ peripheral pulses with evidence of mild peripheral edema and no calf tenderness noted. NEUROLOGIC EXAMINATION: Patient is awake, alert and oriented x3. Results 06/08/23 06:11 06/08/23 06:11 Cardiac Enzymes 06/07/23 06/08/23 06/08/23 Range/Units 20:34 00:10 09:42 Troponin I <0.012 <0.012 <0.012 (0.000-0.034) ng/mL 06/08/23 Range/Units 11:55 Troponin I <0.012 (0.000-0.034) ng/mL CBC 06/08/23 Range/Units 06:11 WBC 6.59 (4.50-10.00) X 10*3/uL RBC 4.49 (4.40-5.60) X 10*6/uL Hgb 13.6 (12.0-15.0) d/dL Hct 41.8 (39.6-50.0) % Plt Count 186 (140-440) X 10*3/uL Comprehensive Metabolic Panel 06/08/23 Range/Units 06:11 Sodium 138 (135-145) mmol/L Potassium 4.7 (3.5-5.5) mmol/L Chloride 106 (96-109) mmol/L Carbon Dioxide 23.5 (21.6-31.8) mmol/L BUN 25.0 (9.0-27.0) mg/dL Creatinine 1.7 H (0.6-1.5) mg/dL Glucose 157 H (70-110) mg/dL Calcium 9.0 (8.7-10.3) mg/dL Current Medications Generic Name Dose Route Start Last Admin Trade Name Freq PRN Reason Stop Dose Admin Acetaminophen 650 mg 06/07/23 19:20 Acetaminophen Tab 325 Mg Tab PO Q6HR PRN Mild Pain or Fever > 100.5 Hydrocodone Bitart/Acetaminophen 1 each 06/07/23 21:42 Hydrocodone/Apap 10-325mg 1 Each Tab PO TID PRN Pain Albuterol Sulfate 1.25 mg 06/07/23 23:08 Albuterol Nebulized 1.25 Mg/3 Ml INHALATION RT-TID PRN Shortness Of Breath Albuterol/Ipratropium 3 ml 06/08/23 08:00 06/08/23 12:17 Ipratropium-Albuterol 3 Ml Neb INHALATION 3 ml RT-QID TAMIKO Administration Aspirin 81 mg 06/07/23 21:45 06/07/23 22:18 Aspirin 81 Mg PO 81 mg HS TAMIKO Administration Atorvastatin Calcium 80 mg 06/07/23 21:45 06/07/23 22:18 Atorvastatin 80 Mg Tab PO 80 mg HS TAMIKO Administration Budesonide/Formoterol Fumarate 2 puff 06/08/23 08:00 06/08/23 09:02 Symbicort 160-4.5 Mcg Inhaler INHALATION 2 puff RT-BID TAMIKO Administration Dapagliflozin 10 mg 06/08/23 09:00 06/08/23 10:13 Dapagliflozin Propanediol 10 Mg Tablet PO 10 mg DAILY TAMIKO Administration Dextrose/Water 25 ml 06/07/23 21:41 Dextrose 50% Syringe 50 Ml IVP PER PROTOCOL PRN Hypoglycemia Protocol Dextrose/Water 50 ml 06/07/23 21:41 Dextrose 50% Syringe 50 Ml IVP PER PROTOCOL PRN Hypoglycemia Protocol Ergocalciferol 1,250 mcg 06/17/23 09:00 Ergocalciferol 1,250 Mcg (50,000 Iu) Capsule PO Q14D TAMIKO Heparin Sodium (Porcine) 5,000 unit 06/07/23 23:15 06/08/23 10:13 Heparin Sodium,Porcine/Pf 5,000 Unit/0.5 Ml Syringe SQ 5,000 unit Q12HR TAMIKO Administration Sodium Chloride 1,000 mls @ 75 mls/hr 06/07/23 19:30 06/08/23 10:14 Saline 0.9% IV Not Given .[id number] TAMIKO Insulin Aspart 0 unit 06/08/23 07:30 06/08/23 12:47 Insulin Aspart (Novolog) 100 Unit/Ml Vial SQ 6 unit ACHS TAMIKO Administration Protocol Insulin Aspart 42 unit 06/08/23 07:30 06/08/23 12:48 Insulin Aspart (Novolog) 100 Unit/Ml Vial SQ 42 unit AC-TID TAMIKO Administration Insulin Detemir 38 unit 06/07/23 22:00 06/08/23 10:14 Insulin Detemir (Levemir) 100 Unit/Ml Syr SQ 38 unit BID@0700,2100 TAMIKO Administration Lisinopril 20 mg 06/09/23 09:00 Lisinopril 20 Mg Tab PO DAILY TAMIKO Magnesium Oxide 400 mg 06/07/23 22:00 06/07/23 22:18 Magnesium Oxide 400 Mg Tab PO 400 mg HS TAMIKO Administration Metoprolol Tartrate 50 mg 06/08/23 11:00 06/08/23 11:35 Metoprolol Tartrate 50 Mg Tab PO 50 mg BID TAMIKO Administration Multivitamins 1 each 06/07/23 22:00 06/07/23 22:18 Multivitamins, Thera 1 Each Tab PO 1 each HS TAMIKO Administration Naloxone HCl 0.2 mg 06/07/23 19:20 Naloxone 0.4 Mg/Ml 1 Ml Vial IV Q2M PRN Opioid Reversal Ondansetron HCl 4 mg 06/07/23 23:10 Ondansetron 4 Mg/2 Ml Vial IVP Q6HR PRN Nausea And Vomiting Tamsulosin HCl 0.4 mg 06/08/23 09:00 06/08/23 10:13 Tamsulosin 0.4 Mg Cap.Er.24h PO 0.4 mg DAILY TAMIKO Administration Venlafaxine HCl 75 mg 06/07/23 22:00 06/08/23 10:13 Venlafaxine Hcl Er 75 Mg Cap PO 75 mg BID TAMIKO Administration Intake and Output 06/07/23 06/08/23 06/08/23 22:59 06:59 14:59 Intake Total 118 Balance 118 Intake: Oral 118 Other: Voiding Method Toilet # Voids 1 2 Weight 147.418 kg 06/08/23 06:11 06/08/23 06:11 Assessment and Plan Assessment: #1 hypotension, improved #2 history of CAD #3 COPD 4 hypertension, hypotensive on current therapy #5 hyperlipidemia #6 diabetes Plan: From cardiology's perspective we will change metoprolol to 50 mg by mouth twice a day. We will discontinue verapamil. Decrease lisinopril to 20 mg by mouth daily. From our standpoint he may be discharged home. He'll monitor his blood pressure at home and follow-up as an outpatient. [employer] note has been reviewed, I agree with a documented findings and plan of care. Patient was seen and examined.
--- NOTE | 2023-06-08 14:20 | P.HPIM ---
History of Present Illness H&P Date: 06/08/23 History of present illness; patient is a 73-year-old gentleman with past medical history significant for hypertension, COPD, hyperlipidemia, diabetes mellitus who was a transfer from [facility] for hypotension. Patient stated that he was all right yesterday morning when he started complaining of generalized weakness. Patient stated that he was not feeling well. Patient takes a number of blood pressure medications and took her his blood pressure was found to be low, patient called his PCP told him to come to the hospital. At the previous facility, patient found to be hypotensive, was given multiple fluid boluses and his blood pressure improved and was transferred to [facility] REVIEW OF SYSTEMS: CONSTITUTIONAL: No fever, no malaise, no fatigue. HEENT: No recent visual problems or hearing problems. Denied any sore throat. CARDIOVASCULAR: No chest pain, orthopnea, PND, no palpitations, no syncope. PULMONARY: No shortness of breath, no cough, no hemoptysis. GASTROINTESTINAL: No diarrhea, no nausea, no vomiting, no abdominal pain. NEUROLOGICAL: No headaches, no weakness, no numbness. HEMATOLOGICAL: Denies any bleeding or petechiae. GENITOURINARY: Denies any burning micturition, frequency, or urgency. MUSCULOSKELETAL/RHEUMATOLOGICAL: Denies any joint pain, swelling, or any muscle pain. ENDOCRINE: Denies any polyuria or polydipsia. The rest of the 14-point review of systems is negative. PHYSICAL EXAMINATION: GENERAL: The patient is alert and oriented x3, not in any acute distress. Well developed, well nourished. HEENT: Pupils are round and equally reacting to light. EOMI. No scleral icterus. No conjunctival pallor. Normocephalic, atraumatic. No pharyngeal erythema. No thyromegaly. CARDIOVASCULAR: S1 and S2 present. No murmurs, rubs, or gallops. PULMONARY: Chest is clear to auscultation, no wheezing or crackles. ABDOMEN: Soft, nontender, nondistended, normoactive bowel sounds. No palpable organomegaly. MUSCULOSKELETAL: No joint swelling or deformity. EXTREMITIES: No cyanosis, clubbing, or pedal edema. NEUROLOGICAL: Gross neurological examination did not reveal any focal deficits. SKIN: No rashes. Assessment and plan Hypotension Generalized weakness insulin-dependent diabetes mellitus Hypertension Hyperlipidemia Monitor vital signs Monitor CBC Monitor CMP Continue telemetry monitoring Trend troponins. Hold blood pressure medications for nonicteric continue IV fluids Monitor blood sugar levels, continue sliding scale insulin. Consult cardiology Labs and medication were reviewed.. Continue same treatment. Continue with symptomatic treatment. Resume home medication. Monitor labs and vitals. DVT and GI prophylaxis. 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 Past Anesthesia/Blood Transfusion Reactions: No Reported Reaction Additional Past Anesthesia/Blood Transfusion Reaction / Comment(s): PREVIOUSLY STATES WOKE UP A CHILD " Past Psychological History: Anxiety, Depression, PTSD Smoking Status: Never smoker Past Alcohol Use History: Rare Past Drug Use History: None Reported - Past Family History Mother Family Medical History: Cancer Additional Family Medical History / Comment(s): COLON CANCER Father Family Medical History: Cancer Additional Family Medical History / Comment(s): COLON CANCER Medications and Allergies Home Medications Medication Instructions Recorded Confirmed Type Atorvastatin [Lipitor] 80 mg PO HS 07/01/18 06/07/23 History Magnesium Oxide [Mag-Ox] 750 mg PO DAILY 07/01/18 06/07/23 History Glucosam/Rao-Msm1/C/[place]/Bosw 1 tab PO HS 04/23/19 06/07/23 History [Glucosamine-Chondroitin Tablet] HYDROcodone/APAP 10-325MG [[place] 1 tab PO TID PRN 04/23/19 06/07/23 History 10-325] Tamsulosin [Flomax] 0.4 mg PO DAILY 04/23/19 06/07/23 History lisinopriL [Zestril] 40 mg PO DAILY 04/23/19 06/07/23 History Aspirin EC [Ecotrin Low Dose] 81 mg PO HS 11/02/20 06/07/23 History Insulin Glargine,Hum.rec.anlog 38 unit SQ BID 11/02/20 06/07/23 History [Lantus Solostar Pen] Ipratropium/Albuterol Sulfate 1 puff INHALATION RT-QID 11/02/20 06/07/23 History [Combivent Respimat Inhaler] Multivit-Min/FA/Lycopen/Lutein 1 tab PO HS 11/02/20 06/07/23 History [Centrum Silver Tablet] Venlafaxine HCl [Effexor XR] 75 mg PO BID 11/02/20 06/07/23 History Acetaminophen Tab [Tylenol Tab] 1,000 mg PO TID PRN 06/07/23 06/07/23 History Albuterol Nebulized [Ventolin 3 ml INHALATION RT-TID PRN 06/07/23 06/07/23 History Nebulized (Accuneb)] Empagliflozin [Jardiance] 25 mg PO DAILY 06/07/23 06/07/23 History Ergocalciferol [Vitamin D2 (1250 1,250 mcg PO Q14D 06/07/23 06/07/23 History Mcg = 88079 Iu)] Fluticasone Propion/Salmeterol 1 puff INHALATION RT-BID 06/07/23 06/07/23 History [Fluticasone-Salmeterol 500-50] Insulin Aspart [NovoLOG Flexpen] 42 units SQ AC-TID 06/07/23 06/07/23 History L.rhamnosus/B.animalis(Lactis) 1 cap PO DAILY 06/07/23 06/07/23 History [Hubbard' Colon Hlth 3B Cfu Cp] Magnesium Oxide [Mag-Ox] 500 mg PO HS 06/07/23 06/07/23 History Metoprolol Tartrate [Lopressor] 100 mg PO BID 06/07/23 06/07/23 History Semaglutide [Ozempic] 0.5 mg PO FR 06/07/23 06/07/23 History Ubidecarenone [Coenzyme Q10] 200 mg PO DAILY 06/07/23 06/07/23 History Verapamil HCl [Calan Sr] 240 mg PO DAILY 06/07/23 06/07/23 History gemfibroziL [Lopid] 600 mg PO BID 06/07/23 06/07/23 History Allergies Allergy/AdvReac Type Severity Reaction Status Date / Time amlodipine Allergy Unknown Verified 06/07/23 20:56 dulaglutide [From Trulicity] Allergy Diarrhea,NAUSEA, Verified 06/07/23 20:56 ABD PAIN ,VERY TIRED esomeprazole [From Nexium] Allergy Unknown Verified 06/07/23 20:56 glipizide Allergy Unknown Verified 06/07/23 20:56 glyburide Allergy Unknown Verified 06/07/23 20:56 rosuvastatin [From Crestor] Allergy Unknown Verified 06/07/23 20:56 NSAIDS (Non-Steroidal AdvReac Unknown Verified 06/07/23 20:56 Anti-Inflamma Physical Exam Vitals: Vital Signs Temp Pulse Pulse Resp BP BP Pulse Ox 06/08/23 07:00 98.3 F 74 16 130/75 95 06/08/23 02:36 97.1 F L 77 15 161/84 95 06/07/23 21:16 97.8 F 61 16 151/83 95 06/07/23 20:28 97.8 F 65 18 125/68 94 L 06/07/23 19:00 18 126/81 93 L 06/07/23 18:30 65 18 126/78 94 L 06/07/23 18:00 65 18 120/82 95 06/07/23 17:44 64 18 120/82 95 06/07/23 17:29 97.6 F 63 18 120/82 Intake and Output 06/07/23 06/08/23 06/08/23 22:59 06:59 14:59 Other: # Voids 1 2 Weight 147.418 kg Results CBC & Chem 7: 06/08/23 06:11 06/08/23 06:11 Labs: Abnormal Lab Results - Last 24 Hours (Table) 06/07/23 06/07/23 06/08/23 Range/Units 19:20 22:16 06:21 POC Glucose (mg/dL) 258 H 151 H (70-110) mg/dL Urine Glucose (UA) 4+ H (Negative)
--- NOTE | 2023-06-08 14:25 | P.DS ---
Providers Date of admission: 06/07/23 19:20 Expected date of discharge: 06/08/23 Attending physician: Ozzie Kumar Consults: 06/07/23 21:37 Consult Physician Routine Consulting Provider: Zainab Johnson Consult Reason/Comments: hypotensive episode Do you want consulting provider notified?: Yes, Notify in am Primary care physician: Josias Li MD Hospital Course: Discharge diagnoses; Hypotension Generalized weakness insulin-dependent diabetes mellitus Hypertension Hyperlipidemia Hospital course; patient is a 73-year-old gentleman with past medical history significant for hypertension, COPD, hyperlipidemia, diabetes mellitus who was a transfer from [facility] for hypotension. Patient stated that he was all right yesterday morning when he started complaining of generalized weakness. Patient stated that he was not feeling well. Patient takes a number of blood pressure medications and took her his blood pressure was found to be low, patient called his PCP told him to come to the hospital. At the previous facility, patient found to be hypotensive, was given multiple fluid boluses and his blood pressure improved and was transferred to [facility] 06/08. Patient seen and examined. Patient was evaluated with cardiology, they recommended to decrease metoprolol to 50 mg by mouth twice a day. We will discontinue verapamil. Decrease lisinopril to 20 mg by mouth daily. Cardiology cleared the patient for discharge PHYSICAL EXAMINATION: GENERAL: The patient is alert and oriented x3, not in any acute distress. Well developed, well nourished. HEENT: Pupils are round and equally reacting to light. EOMI. No scleral icterus. No conjunctival pallor. Normocephalic, atraumatic. No pharyngeal erythema. No thyromegaly. CARDIOVASCULAR: S1 and S2 present. No murmurs, rubs, or gallops. PULMONARY: Chest is clear to auscultation, no wheezing or crackles. ABDOMEN: Soft, nontender, nondistended, normoactive bowel sounds. No palpable organomegaly. MUSCULOSKELETAL: No joint swelling or deformity. EXTREMITIES: No cyanosis, clubbing, or pedal edema. NEUROLOGICAL: Gross neurological examination did not reveal any focal deficits. SKIN: No rashes. Patient Condition at Discharge: Good Plan - Discharge Summary New Discharge Prescriptions: New Metoprolol Tartrate [Lopressor] 50 mg PO BID #30 tab lisinopriL [Zestril] 20 mg PO DAILY #30 tab Continue Magnesium Oxide [Mag-Ox] 750 mg PO DAILY Atorvastatin [Lipitor] 80 mg PO HS HYDROcodone/APAP 10-325MG [[place] 10-325] 1 tab PO TID PRN PRN Reason: Pain Tamsulosin [Flomax] 0.4 mg PO DAILY Glucosam/Rao-Msm1/C/Moody/Bosw [Glucosamine-Chondroitin Tablet] 1 tab PO HS Aspirin EC [Ecotrin Low Dose] 81 mg PO HS Venlafaxine HCl [Effexor XR] 75 mg PO BID Ipratropium/Albuterol Sulfate [Combivent Respimat Inhaler] 1 puff INHALATION RT-QID Insulin Glargine,Hum.rec.anlog [Lantus Solostar Pen] 38 unit SQ BID Multivit-Min/FA/Lycopen/Lutein [Centrum Silver Tablet] 1 tab PO HS Semaglutide [Ozempic] 0.5 mg PO FR Insulin Aspart [NovoLOG Flexpen] 42 units SQ AC-TID Ergocalciferol [Vitamin D2 (1250 Mcg = 35380 Iu)] 1,250 mcg PO Q14D Ubidecarenone [Coenzyme Q10] 200 mg PO DAILY Empagliflozin [Jardiance] 25 mg PO DAILY Albuterol Nebulized [Ventolin Nebulized (Accuneb)] 3 ml INHALATION RT-TID PRN PRN Reason: Shortness Of Breath Magnesium Oxide [Mag-Ox] 500 mg PO HS L.rhamnosus/B.animalis(Lactis) [Hubbard' Colon Hlth 3B Cfu Cp] 1 cap PO DAILY gemfibroziL [Lopid] 600 mg PO BID Fluticasone Propion/Salmeterol [Fluticasone-Salmeterol 500-50] 1 puff INHALATION RT-BID Discontinued lisinopriL [Zestril] 40 mg PO DAILY Acetaminophen Tab [Tylenol Tab] 1,000 mg PO TID PRN PRN Reason: Fever And/ Or Pain Metoprolol Tartrate [Lopressor] 100 mg PO BID Verapamil HCl [Calan Sr] 240 mg PO DAILY Discharge Medication List Atorvastatin [Lipitor] 80 mg PO HS 07/01/18 [History] Magnesium Oxide [Mag-Ox] 750 mg PO DAILY 07/01/18 [History] Glucosam/Rao-Msm1/C/Moody/Bosw [Glucosamine-Chondroitin Tablet] 1 tab PO HS 04/23/19 [History] HYDROcodone/APAP 10-325MG [[place] 10-325] 1 tab PO TID PRN 04/23/19 [History] Tamsulosin [Flomax] 0.4 mg PO DAILY 04/23/19 [History] Aspirin EC [Ecotrin Low Dose] 81 mg PO HS 11/02/20 [History] Insulin Glargine,Hum.rec.anlog [Lantus Solostar Pen] 38 unit SQ BID 11/02/20 [History] Ipratropium/Albuterol Sulfate [Combivent Respimat Inhaler] 1 puff INHALATION RT- QID 11/02/20 [History] Multivit-Min/FA/Lycopen/Lutein [Centrum Silver Tablet] 1 tab PO HS 11/02/20 [History] Venlafaxine HCl [Effexor XR] 75 mg PO BID 11/02/20 [History] Albuterol Nebulized [Ventolin Nebulized (Accuneb)] 3 ml INHALATION RT-TID PRN 06/07/23 [History] Empagliflozin [Jardiance] 25 mg PO DAILY 06/07/23 [History] Ergocalciferol [Vitamin D2 (1250 Mcg = 25685 Iu)] 1,250 mcg PO Q14D 06/07/23 [History] Fluticasone Propion/Salmeterol [Fluticasone-Salmeterol 500-50] 1 puff INHALATION RT-BID 06/07/23 [History] Insulin Aspart [NovoLOG Flexpen] 42 units SQ AC-TID 06/07/23 [History] L.rhamnosus/B.animalis(Lactis) [Hubbard' Colon Hlth 3B Cfu Cp] 1 cap PO DAILY 06/07/23 [History] Magnesium Oxide [Mag-Ox] 500 mg PO HS 06/07/23 [History] Semaglutide [Ozempic] 0.5 mg PO FR 06/07/23 [History] Ubidecarenone [Coenzyme Q10] 200 mg PO DAILY 06/07/23 [History] gemfibroziL [Lopid] 600 mg PO BID 06/07/23 [History] Metoprolol Tartrate [Lopressor] 50 mg PO BID #30 tab 06/08/23 [Rx] lisinopriL [Zestril] 20 mg PO DAILY #30 tab 06/08/23 [Rx] Follow up Appointment(s)/Referral(s): Josias Li MD [Primary Care Provider] - 1-2 days Zainab Johnson MD [STAFF PHYSICIAN] - 1 Week Discharge Disposition: HOME SELF-CARE
[2023-06-08 15:48] VITALS: BP 154/84; PULSE 79; TEMP 98
[2023-06-08 16:14] LABS: Glucose,Whole Blood 63 mg/dL (70-110)
[2023-06-08 16:40] LABS: Glucose,Whole Blood 106 mg/dL (70-110)
[2023-06-09] MEDS ORDERED: lisinopriL 20 MG TAB PO SCH (09:00)
[2023-06-17] MEDS ORDERED: ERGOCALCIFEROL 1,250 MCG (50,000 IU) CAPSULE PO SCH (09:00)
== END 2023-06-08 17:03 | disposition home or self-care (01) ==
LOC: EC 17:26 → 6NMEDSUR 19:20
PROVIDERS: ADMIT Hospitalist; ATTEND Hospitalist
DX: I95.9 Hypotension, unspecified (principal); I12.9 Hypertensive chronic kidney disease with stage 1 through stage 4 chronic kidney disease, or unspecified chronic kidney disease; N18.2 Chronic kidney disease, stage 2 (mild); I25.10 Atherosclerotic heart disease of native coronary artery without angina pectoris; J44.9 Chronic obstructive pulmonary disease, unspecified; E11.40 Type 2 diabetes mellitus with diabetic neuropathy, unspecified; D49.7 Neoplasm of unspecified behavior of endocrine glands and other parts of nervous system; I44.0 Atrioventricular block, first degree; E78.5 Hyperlipidemia, unspecified; G47.30 Sleep apnea, unspecified; F32.A Depression, unspecified; F43.10 Post-traumatic stress disorder, unspecified; F41.9 Anxiety disorder, unspecified; Z79.84 Long term (current) use of oral hypoglycemic drugs; Z79.82 Long term (current) use of aspirin; Z79.51 Long term (current) use of inhaled steroids; Z79.899 Other long term (current) drug therapy; Z79.4 Long term (current) use of insulin; Z88.6 Allergy status to analgesic agent; Z88.8 Allergy status to other drugs, medicaments and biological substances; Z96.659 Presence of unspecified artificial knee joint; Z96.619 Presence of unspecified artificial shoulder joint; Z98.890 Other specified postprocedural states; Z80.0 Family history of malignant neoplasm of digestive organs
CPT/HCPCS: 96372; 99285; 94660 ×2; 94640 ×2; 93005; 85379; 80048; 84484 ×2; 85025; 81003; 83036; G0378 ×2; J1644

== ENCOUNTER → 2023-06-21 | Outpatient (CLI) | payer MEDICARE ==
--- NOTE | 2023-06-21 12:00 | XR ---
EXAMINATION TYPE: XR chest 2V DATE OF EXAM: 06/21/2023 COMPARISON: 11/03/2020 HISTORY: Shortness of breath TECHNIQUE: Frontal and lateral views of the chest are obtained. FINDINGS: Scattered senescent parenchymal changes noted. Hyperinflation compatible with COPD. No evidence for infiltrate. No evidence for atelectasis. Heart size is stable. Mediastinal structures are stable and grossly unremarkable. No evidence for hilar prominence. Degenerative changes dorsal spine. IMPRESSION: 1. No evidence for acute pulmonary disease.
--- NOTE | 2023-06-21 13:25 | NM ---
EXAMINATION TYPE: NM pul vent and perfuse DATE OF EXAM: 06/21/2023 CLINICAL INDICATION: Male, 73 years old with history of R79.1 ABNORMAL COAGULATION PROFILE; HISTORY: R79.1 ABNORMAL COAGULATION PROFILE TECHNIQUE: Utilizing inhalation of 41.2 mCi Tc 99m DTPA aerosol and intravenous injection of 5.3 mCi of Tc 99m MAA, ventilation and perfusion images are acquired post injection in multiple projections. FINDINGS: Normal radiotracer distribution is noted in the lungs. There is no evidence of mismatched defects. IMPRESSION: Very low probability for pulmonary embolism.
== END | disposition home or self-care (01) ==
LOC: RADNMMAIN 11:27
PROVIDERS: ATTEND Internal Medicine
DX: R06.02 Shortness of breath (principal); R79.1 Abnormal coagulation profile
CPT/HCPCS: 71046; 78582; A9540; A9567

== ENCOUNTER → 2024-01-14 | Day surgery (SDC) | payer MEDICARE ==
[~2024-01-14] MED LIST changes: -ACETAMINOPHEN TAB 500 MG TAB PO PRN; -ASPIRIN 325 MG TAB PO STA; -ATORVASTATIN 80 MG TAB PO STA; -GLIMEPIRIDE 4 MG TAB PO SCH; -HEPARIN SODIUM 1,000 UN/ML (10ML VL) IV ONE; +HEPARIN SODIUM 1,000 UN/ML (10ML VL) ONE; -HYDROcodone/APAP 10-325MG 1 EACH TAB PO PRN; +INSULIN ASPART (NovoLOG) 100 UNIT/ML VIAL SQ SCH; -IOPAMIDOL-370 125ML BTL INJ ONE; +LIDOCAINE 1% INJ 10MG/ML (20 ML MDV) ONE; -LIDOCAINE 1% INJ 10MG/ML (20 ML MDV) SQ ONE; -LISINOPRIL 20 MG TAB PO SCH; -MIDAZOLAM (PF) 2 MG/2 ML VIAL IV ONE; +NON FORMULARY DRUG (Insulin Glargine,Hum.Rec.Anlog [Lantus Solostar Pen] 100 UNIT/ML Insul SQ SCH; +NON FORMULARY DRUG (Semaglutide [Ozempic] 0.25 MG/0.2 ML Each) SQ SCH; -NON-FORMULARY DRUG (Glucosam/Chon-Msm1/C/Mang/Bosw [Glucosamine-Chondroitin Tablet] 1 EACH PO SCH; -NON-FORMULARY DRUG (Magnesium Oxide 250 MG) PO SCH; -NON-FORMULARY DRUG (Multivitamin [Men's Multi-Vitamin] 1 EACH) PO SCH; -NON-FORMULARY DRUG (Ubidecarenone [Co Q-10] 100 MG) PO SCH; -SODIUM CHLORIDE 0.9% 1,000 ML in EMPTY BAG 1 BAG IV ONE; +SODIUM CHLORIDE 0.9% 1,000 ML in EMPTY BAG 1 BAG IV SCH; -TAMSULOSIN 0.4 MG CAP.ER.24H PO SCH; -VENLAFAXINE HCL 75 MG PO SCH; +VENLAFAXINE HCL ER 75 MG CAP PO SCH; +VERAPAMIL 2.5 MG/ML 2 ML AMP ONE; -VERAPAMIL SYRINGE (5 MG/10 ML) INTRAARTER ONE; -fentaNYL (PF) 50 MCG/ML 2 ML AMP IV ONE; +fentaNYL (PF) 50 MCG/ML 2 ML AMP ONE; +lisinopriL 20 MG TAB PO SCH
[2024-01-14] MEDS: SODIUM CHLORIDE 0.9% 1,000 ML IV ONE (09:00)
[2024-01-14 09:15] LABS: Glucose,Whole Blood 147 mg/dL (70-110)
[2024-01-14 09:22] LABS: Basophils # (A) 0.1 k/uL (0-0.2); Basophils % (A) 1 %; Eosinophils # (A) 0.2 k/uL (0-0.7); Eosinophils % (A) 4 %; HCT 51.9 % (39.0-53.0); HGB 17.3 gm/dL (13.0-17.5); Lymphocytes # (A) 1.2 k/uL (1.0-4.8); Lymphocytes % (A) 20 %; MCH 30.9 pg (25.0-35.0); MCHC 33.3 g/dL (31.0-37.0); MCV 92.6 fL (80.0-100.0); Mean Platelet Volume 7.8; Monocytes # (A) 0.6 k/uL (0-1.0); Monocytes % (A) 11 %; Neutrophils # (A) 3.7 k/uL (1.3-7.7); Neutrophils % (A) 62 %; Platelet Count 185 k/uL (150-450); RDW 13.8 % (11.5-15.5); WBC 5.9 k/uL (3.8-10.6)
[2024-01-14 09:31] LABS: African American GFR (CKD) 46 (>60 ml/min/1.73 sqM); Anion Gap 10 mmol/L; Blood Urea Nitrogen 28 mg/dL (9-20); Calcium 9.4 mg/dL (8.4-10.2); Carbon Dioxide 22 mmol/L (22-30); Chloride 107 mmol/L (98-107); Glucose 158 mg/dL (74-99); Non-African American GFR(CKD) 40 (>60 ml/min/1.73 sqM); Sodium 139 mmol/L (137-145)
[2024-01-14 09:39] LABS: Potassium 5.6 mmol/L (3.5-5.1)
[2024-01-14] MEDS: LIDOCAINE 1% INJ 10MG/ML (20 ML MDV) SQ ONE (09:52)
[2024-01-14] MEDS: HEPARIN SODIUM 1,000 UN/ML (10ML VL) IVP ONE (09:56)
[2024-01-14] MEDS: fentaNYL (PF) 50 MCG/1 ML VIAL IVP ONE (09:56)
[2024-01-14] MEDS: VERAPAMIL SYRINGE (5 MG/10 ML) INTRAARTER ONE (09:58)
[2024-01-14] MEDS: IOPAMIDOL-370 100ML BTL INTRATHECA ONE (10:06)
[2024-01-14] MEDS: IV FLUID CONTINUATION 1,000 ML IV ONE (10:14)
--- NOTE | 2024-01-14 10:24 | P.CARDCATH ---
Date of Procedure: 01/14/24 Description of Procedure: Cardiac Catheterization: The patient is a 73-year-old male with known history of CAD, hypertension, hyperlipidemia and diabetes mellitus who has been complaining of dyspnea and had an abnormal MPI. Recommendations were made regarding cardiac catheterization, the risks and the complications were discussed with the patient who is in full understanding and agreement. Procedure Description: Patient was brought to clinical laboratory technician in fasting semi-sedated state after receiving Fentanyl and Benadryl achieiving moderate conscious sedated state. Using Xylocaine Anesthesia and modified Seldinger technique, a 6-[place] sheath was introduced in the right radial artery . Subsequently, selective coronary angiography was performed using a 5-[place] 3.5 bend Flor catheter. Multiple views of the coronary artery including hemiaxial views were obtained. The 5 [place] pigtail catheter was used to cross the aortic valve and LVEDP was calculated. Following that, catheter and sheath were removed. Hemostasis was obtained with deployment of vascular band . There was no immediate complication. Patient was returned to room in stable condition. Of note, the patient received a total of 5000 units of intravenous heparin as well as intra-arterial verapamil. Findings: Left main: This is a large size vessel, trifurcating into LAD, left circumflex and ramus intermedius, left main has no obstructive disease LAD: This is a large size vessel, reaching to the apex, giving rise to small diagonal branch. The LAD proximally has a 20% plaque without any evidence of high-grade stenosis Left circumflex: This is a nondominant vessel, giving rise to 2 obtuse marginal branch of moderate caliber. The left circumflex has mild plaque of 10 to 20% in the midsegment with no high-grade stenosis RCA: This is a large dominant vessel, bifurcating distally to PDA and PLV the mid RCA has an intimal tubular lesion of about 30% without any high-grade stenosis Ramus intermedius this is a large size vessel that has no evidence of high-grade stenosis Left Ventriculogram: Not performed Hemodynamics: There was no gradient across the aortic valve, LVEDP was 15-18 mmHg Conclusion: 1. Mild triple-vessel disease 2. Right dominance 3. No significant progression since 2019 Recommendations: I will continue present therapy with aggressive coronary risks modifications. The findings and the recommendations were discussed with the patient and the family and they were in full understanding and agreement. Duration of sedation is 16 minutes.
[2024-01-14 15:17] VITALS: PULSE 72; RESP 18
[2024-01-14 15:47] VITALS: BP 167/92; TEMP 98.7
== END | disposition home or self-care (01) ==
LOC: CATHCVL 08:34
PROVIDERS: ATTEND Internal Medicine Interventional Cardiology
DX: I25.10 Atherosclerotic heart disease of native coronary artery without angina pectoris (principal); I10 Essential (primary) hypertension; E78.5 Hyperlipidemia, unspecified; E11.9 Type 2 diabetes mellitus without complications; M19.90 Unspecified osteoarthritis, unspecified site; Z82.49 Family history of ischemic heart disease and other diseases of the circulatory system; Z79.82 Long term (current) use of aspirin; Z79.51 Long term (current) use of inhaled steroids; Z79.84 Long term (current) use of oral hypoglycemic drugs; Z88.8 Allergy status to other drugs, medicaments and biological substances; Z87.891 Personal history of nicotine dependence; Z98.890 Other specified postprocedural states
CPT/HCPCS: 93458; 80048; 85025; C1769 ×2; C1894; J2001; J1644; Q9967; J3010